=== PATIENT | female | born 1955 | race Caucasian/White ===

== ENCOUNTER 2017-10-19 21:19 | Observation (INO) | payer MEDICARE ==
[~2017-10-19] VITALS: Ht 162.6 cm; Wt 136.2 kg
[~2017-10-19 21:19] MED LIST: ACETAMINOPHEN 500 MG CPLT PO PRN; ACETAMINOPHEN/HYDROcodone 325 MG/7.5 MG TAB PO PRN; ALLO100T PO; APIX5TAB PO; CETI10 PO; DEXTROSE 50% IN WATER 50 ML VIAL(D50) IV PUSH PRN; DILT60TA33 PO; GLUCAGON 1 MG/ML VIAL OTHER PRN; INSU1.2I SQ; INSULIN DETEMIR 100 UNITS/ML VIAL SQ SCH; LISI-519 PO; METO-426 PO; MIRA25TA PO; MONT10TA2 PO; MONTELUKAST SODIUM 10 MG TAB PO SCH; MORPHINE SULFATE 4 MG/ML INJ IV PUSH PRN; NEXI20CA PO; NITROGLYCERIN 0.4 MG SL 25 TABS/BTL SL PRN; OXYC1TAB63 PO; PAXI30TA7 PO; ROPI.25 PO; SODIUM CHLORIDE 0.9% FLUSH 10 ML FLUSH IV FLUSH PRN; SPIR25TA PO; oxyCODONE/ACETAMINOPHEN 5 MG/325 MG TAB PO PRN
[2017-10-19 21:30] VITALS: BP 126/80; PULSE 102; RESP 20; TEMP 98; O2SAT 98
[2017-10-19] MEDS ORDERED: TOLTERODINE TARTRATE 2 MG CAP LA PO SCH (22:00)
[2017-10-19] MEDS: DILTIAZEM HCL 60 MG TAB PO SCH (22:24)
[2017-10-19] MEDS: APIXABAN 5 MG TABLET PO SCH (22:24)
[2017-10-19] MEDS: METOPROLOL TARTRATE 25 MG TAB PO SCH (22:24)
[2017-10-19] MEDS: INSULIN ASPART SUPPLEMENTAL SCALE SQ SCH (22:31)
[2017-10-19] MEDS: SODIUM CHLORIDE 0.9% FLUSH 10 ML FLUSH IV FLUSH SCH (22:41)
[2017-10-19 23:00] VITALS: PULSE 88
[2017-10-19 23:55] LABS: BICARBONATE 27.1 MEQ/L (21.0-32.0); CALCIUM 7.8 MG/DL (8.5-10.1)
[2017-10-19 23:58] LABS: CREATININE 0.69 MG/DL (0.50-1.00)
[2017-10-20 00:03] LABS: TROPONIN I 0.02 NG/ML (0.02-0.05)
[2017-10-20 04:00] VITALS: BP 117/71; PULSE 87; RESP 20; TEMP 96.6; O2SAT 99
[2017-10-20] MEDS: DILTIAZEM HCL 60 MG TAB PO SCH ×2 (06:13→14:58)
[2017-10-20 08:00] VITALS: BP 110/85; PULSE 90; RESP 16; TEMP 96.7; O2SAT 99
[2017-10-20] MEDS: APIXABAN 5 MG TABLET PO SCH (08:19)
[2017-10-20] MEDS: METOPROLOL TARTRATE 25 MG TAB PO SCH (08:20)
[2017-10-20] MEDS: SODIUM CHLORIDE 0.9% FLUSH 10 ML FLUSH IV FLUSH SCH (08:21)
[2017-10-20] MEDS: INSULIN ASPART SUPPLEMENTAL SCALE SQ SCH ×2 (08:21→11:55)
--- NOTE | 2017-10-20 08:48 | HHI.HP ---
[facility]Staff Admission Diagnosis Palpitations Elevated glucose Diagnoses: Chief Complaint: Palpitations Elevated glucose Travel History International Travel<30 Days: No Contact w/Intl Traveler <30 Da: No Traveled to Known Affected Are: No History of Present Illness This is a pleasant 61-year-old female patient with a known medical history of atrial fibrillation, CHF, diabetes, COPD with chronic oxygen at home who presented to the ED with complaints of palpitations and lightheadedness. Patient states that while she was having lunch yesterday she noticed that her heart started to race she became lightheaded and called EMS. She was found to be in atrial fibrillation with a heart rate in the 110's, her glucose was found to be over 500 and adequate oxygen saturation on 3 L nasal cannula. Patient denies any nausea. Does complain of vomiting 2 the last couple days. Patient denies any recent illness including fever, chills, cough, shortness of breath, abdominal pain, nausea, diarrhea, dysuria. Patient does admit to urinary frequency. Does admit to not taking her insulin for over a month now, patient states she just does not feel like it. Although she does admit to taking all of her other medications. Patient states she she is from [facility], recently moved from [place] within the last 2 months, has followed with the forestry engineer last week, denies any changes in medications. Does admit to a recent stress test and echocardiogram and cardiology workup within the year. It should be noted that patient was admitted to [facility] 2 months ago for congestive heart failure with exacerbation. Since her discharge patient states she has been doing well except noncompliance with medications. UA is positive upon presentation, likely UTI. Review of Systems Constitutional: DENIES: Fatigue, Fever, Chills Eyes: DENIES: Diplopia Respiratory: DENIES: Cough, Sputum production, Shortness of breath Cardiovascular: COMPLAINS OF: Palpitations, DENIES: Chest pain Gastrointestinal: DENIES: Abdominal pain, Black stools, Bloody stools, Constipation, Diarrhea, Nausea, Vomiting Genitourinary: COMPLAINS OF: Urinary frequency, Urinary incontinence Musculoskeletal: DENIES: Joint pain Hematologic/lymphatic: DENIES: Bruising Neurologic: DENIES: Abnormal gait Psychiatric: DENIES: Anxiety Except as stated in HPI: all other systems reviewed are Neg Past Family Social History Past Medical History Atrial fibrillation on anticoagulation CHF Diabetes COPD with oxygen Depression Chronic pain Urinary incontinence History of gout Past Surgical History Denies any previous surgery. Reported Medications Current Medications Medications (Trade) Dose Ordered Sig/Oswadlo Route Start Time Stop Time Status Last Admin (NS Flush) 2 ml UNSCH PRN IV FLUSH 10/19/17 19:30 (NS Flush) 2 ml BID IV FLUSH 10/19/17 21:00 10/20/17 08:21 (Tylenol) 500 mg Q4H PRN PO 10/19/17 19:30 (Morphine Inj) 2 mg Q4H PRN IV PUSH 10/19/17 19:30 10/20/17 04:14 (Nitrostat Sl) 0.4 mg Q5M PRN SL 10/19/17 19:30 (Aspirin) 325 mg DAILY PO 10/20/17 09:00 10/20/17 08:26 (Zyloprim) 100 mg DAILY PO 10/20/17 09:00 10/20/17 08:19 (Eliquis) 5 mg BID PO 10/19/17 21:00 10/20/17 08:19 (ZyrTEC) 10 mg DAILY PO 10/20/17 09:00 10/20/17 08:18 (Cardizem) 60 mg Q8HR PO 10/19/17 22:00 10/20/17 06:13 (Prinivil) 5 mg DAILY PO 10/20/17 09:00 10/20/17 08:19 (Lopressor) 75 mg BID PO 10/19/17 21:00 10/20/17 08:20 (Singulair) 10 mg HS PO 10/19/17 21:00 10/19/17 22:24 (Requip) 0.25 mg HS PO 10/19/17 21:00 (Aldactone) 12.5 mg DAILY PO 10/20/17 09:00 10/20/17 08:18 (Protonix) 20 mg DAILY PO 10/20/17 09:00 10/20/17 08:18 (Detrol La) 2 mg HS PO 10/19/17 22:00 10/19/17 22:29 (Paxil) 30 mg DAILY PO 10/20/17 09:00 10/20/17 08:20 (Levemir Inj) 56 units HS SQ 10/19/17 21:00 Future Hold (Percocet 5-325 Mg) 1 tab Q4H PRN PO 10/19/17 19:30 10/20/17 02:59 (D50w (Vial) Inj) 50 ml UNSCH PRN IV PUSH 10/19/17 19:30 (Glucagon Inj) 1 mg UNSCH PRN OTHER 10/19/17 19:30 (NovoLOG SUPPLEMENTAL SCALE) 1 ACHS SLIDING SCALE SQ 10/19/17 21:00 10/20/17 08:21 Allergies: Coded Allergies: cefuroxime (Verified Allergy, Severe, VOMITING AND DIARRHEA, 10/19/17) salmeterol (Verified Allergy, Severe, MAKES CHF WORSE, 10/19/17) umeclidinium (Verified Allergy, Severe, MAKES CHF WORSE, 10/19/17) vilanterol (Verified Allergy, Severe, MAKES CHF WORSE, 10/19/17) Penicillins (Verified Allergy, Unknown, CHILDHOOD, 10/19/17) Active Ordered Medications Active Reported Cardizem (Diltiazem HCl) 60 Mg Tab 60 Mg PO TID Nexium (Esomeprazole DR) 20 Mg Capdr 20 Mg PO DAILY Oxycodone-Acetaminophen 5-325 mg Tab 1 Tab PO Q6H PRN Paxil (Paroxetine HCl) 30 Mg Tab 30 Mg PO DAILY Singulair (Montelukast Sodium) 10 Mg Tab 10 Mg PO HS Cetirizine (Cetirizine HCl) 10 Mg Tab 10 Mg PO DAILY Requip (Ropinirole HCl) 0.25 Mg Tab 0.25 Mg PO HS Spironolactone 25 Mg Tab 12.5 Mg PO DAILY Lisinopril 5 Mg Tab 5 Mg PO DAILY Allopurinol 100 Mg Tab 100 Mg PO DAILY Metoprolol Tartrate 75 Mg Tab 75 Mg PO BID Myrbetriq (Mirabegron) 25 Mg Tab 25 Mg PO EVENINGS Touondina Solostar Pen Inj (Insulin Glargine) 300 Unit/Ml Pen 56 Units SQ HS Eliquis (Apixaban) 5 Mg Tab 5 Mg PO BID Family History Patient denies any significant family medical history. Social History Denies any tobacco abuse, alcohol or illicit drug use. Physical Exam Vital Signs Vital Signs Date Time Temp Pulse Resp B/P (MAP) Pulse Ox O2 Delivery O2 Flow Rate FiO2 10/20/17 08:00 96.7 90 16 110/85 (93) 99 10/20/17 04:00 96.6 87 20 117/71 (86) 99 10/19/17 23:00 88 10/19/17 21:30 98.0 102 20 126/80 (95) 98 Physical Exam GENERAL: Well-developed, well-nourished obese woman patient in NAD. On supplemental O2. SKIN: Warm and dry. No rash. HEAD: Normocephalic. Atraumatic. EYES: Pupils equal and round. No scleral icterus. No injection or drainage. ENT: No nasal bleeding or discharge. Mucous membranes pink and moist. NECK: Supple. Trachea midline. CARDIOVASCULAR: Irregularly irregular rhythm. No murmur appreciated. RESPIRATORY: No accessory muscle use. Diminished breath sounds to posterior bilateral bases. Breath sounds equal bilaterally. GASTROINTESTINAL: Abdomen soft, non-tender, nondistended. Round and obese. Normoactive bowel sounds x4. MUSCULOSKELETAL: No obvious deformities. Extremities without clubbing, cyanosis , or bilateral trace edema. NEUROLOGICAL: Awake and alert. No obvious cranial nerve deficits. Motor grossly within normal limits. 5/5 muscle strength in bilateral upper and lower extremities. Normal speech. PSYCHIATRIC: Appropriate mood and affect; insight and judgment normal. Laboratory Laboratory Tests Test 10/19/17 23:25 10/20/17 08:10 Blood Urea Nitrogen 13 Creatinine 0.69 Random Glucose 356 Calcium Level 7.8 Sodium Level 137 Potassium Level 3.6 Chloride Level 102 Carbon Dioxide Level 27.1 Anion Gap 8 Estimat Glomerular Filtration Rate 86 Total Creatine Kinase 34 Troponin I 0.02 Result Diagram: 10/19/17 0020 Septic Shock Reassessment Septic shock perfusion: reassessment completed Caprini VTE Risk Assessment Caprini VTE Risk Assessment: Mod/High Risk (score >= 2) Caprini Risk Assessment Model Point Value = 1 Point Value = 2 Point Value = 3 Point Value = 5 Age 41-60 Minor surgery BMI > 25 kg/m2 Swollen legs Varicose veins or History of unexplained or recurrent spontaneous Oral contraceptives or hormone replacement Sepsis (< 1 month) Serious lung disease, including pneumonia (< 1 month) Abnormal pulmonary function Acute myocardial infarction Congestive heart failure (< 1 month) History of inflammatory bowel disease Medical patient at bed rest Age 61-74 Arthroscopic surgery Major open surgery (> 45 min) Laparoscopic surgery (> 45 min) Malignancy Confined to bed (> 72 hours) Immobilizing plaster cast Central venous access Age >= 75 History of VTE Family history of VTE Factor V Leiden Prothrombin [id number] Lupus anticoagulant Anticardiolipin antibodies Elevated serum homocysteine Heparin-induced thrombocytopenia Other congenital or acquired thrombophilia Stroke (< 1 month) Elective arthroplasty Hip, pelvis, or leg fracture Acute spinal cord injury (< 1 month) Prophylaxis Regimen Total Risk Factor Score Risk Level Prophylaxis Regimen 0-1 Low Early ambulation 2 Moderate Order ONE of the following: *Sequential Compression Device (SCD) *Heparin 5000 units SQ BID 3-4 Higher Order ONE of the following medications: *Heparin 5000 units SQ TID *Enoxaparin/Lovenox 40 mg SQ daily (WT < 150 kg, CrCl > 30 mL/min) *Enoxaparin/Lovenox 30 mg SQ daily (WT < 150 kg, CrCl > 10-29 mL/min) *Enoxaparin/Lovenox 30 mg SQ BID (WT < 150 kg, CrCl > 30 mL/min) AND/OR *Sequential Compression Device (SCD) 5 or more Highest Order ONE of the following medications: *Heparin 5000 units SQ TID (Preferred with Epidurals) *Enoxaparin/Lovenox 40 mg SQ daily (WT < 150 kg, CrCl > 30 mL/min) *Enoxaparin/Lovenox 30 mg SQ daily (WT < 150 kg, CrCl > 10-29 mL/min) *Enoxaparin/Lovenox 30 mg SQ BID (WT < 150 kg, CrCl > 30 mL/min) AND *Sequential Compression Device (SCD) Assessment and Plan Problem List: (1) UTI (urinary tract infection) ICD Code: N39.0 - Urinary tract infection, site not specified Plan: Patient presented with urinary frequency. UA abnormal showing presence of white blood cells and bacteria. Culture pending. Was given 1 dose of Macrobid in ED. Continue. (2) Atrial fibrillation with RVR ICD Code: I48.91 - Unspecified atrial fibrillation Plan: EKG reviewed showing A. fib RVR with heart rate 115. Cardiac telemetry continued, heart rate now more controlled. Continue home medications including Lopressor and Cardizem. Continue home Eliquis. We will continue to monitor. (3) Type 2 diabetes mellitus ICD Code: E11.9 - Type 2 diabetes mellitus without complications Plan: Random glucose over 500. Patient placed on Accu-Chek before meals at bedtime, sliding scale, cover as needed. Patient does admit to noncompliance with her insulin at home. Will restart and monitor blood sugar trends. PCP to follow. Encourage compliance with medications. Patient BS improved. Will DC on same dose of insulin at home. Follow PCP outpatient. (4) Hypertension ICD Code: I10 - Essential (primary) hypertension Plan: Blood pressure trends controlled. Continue home lisinopril. Monitor trending. (5) COPD (chronic obstructive pulmonary disease) ICD Code: J44.9 - Chronic obstructive pulmonary disease, unspecified Plan: Not in exacerbation. Patient is on 3 L nasal cannula, this is patient's baseline at home. Will restart home Singulair. Supportive care. Oxygen saturations above 92%. (6) CHF (congestive heart failure) ICD Code: I50.9 - Heart failure, unspecified Plan: Mild exacerbation. BNP 500. Will restart spironolactone. Given 1 dose of Lasix and potassium supplementation. Continue to monitor intake and output. Patient diuresing well. CXR reviewed and negative for any acute disease. Patient assessed later after diuretic and diuresing well. Will DC home. All symptoms improved. Christina Del Toro October 20, 2017 08:48
[2017-10-20 08:56] LABS: TROPONIN I LESS THAN 0.02 NG/ML (0.02-0.05)
[2017-10-20] MEDS ORDERED: ASPIRIN 325 MG TAB PO SCH (09:00)
[2017-10-20] MEDS ORDERED: LISINOPRIL 5 MG TAB PO SCH (09:00)
[2017-10-20] MEDS ORDERED: PANTOPRAZOLE SOD 20 MG DELAYED RELEASE TAB PO SCH (09:00)
[2017-10-20] MEDS ORDERED: PARoxetine HCL 20 MG TAB PO SCH (09:00)
[2017-10-20] MEDS ORDERED: ALLOPURINOL 100 MG TAB PO SCH (09:00)
[2017-10-20] MEDS ORDERED: SPIRONOLACTONE 25 MG TAB PO SCH (09:00)
[2017-10-20] MEDS ORDERED: CETIRIZINE HCL 10 MG TAB PO SCH (09:00)
[2017-10-20] MEDS ORDERED: POTASSIUM CHLORIDE 20 MEQ CONTROLLED RELEASE TAB PO ONE (10:00)
[2017-10-20] MEDS ORDERED: FUROSEMIDE 20 MG TAB PO ONE (10:00)
[2017-10-20] MEDS ORDERED: NITROFURANTOIN MONOHYD MACROCR 100 MG CAP PO SCH (10:45)
[2017-10-20 11:12] LABS: AUTOMATED NEUTROPHIL # 4.8 TH/MM3 (1.8-7.7); BASOPHIL % 0.5 % (0.0-2.0); EOSINOPHIL # 0.3 TH/MM3 (0-0.4); EOSINOPHIL % 3.5 % (0.0-4.0); HEMATOCRIT 40.6 % (35.0-46.0); HEMOGLOBIN 13.3 GM/DL (11.6-15.3); LYMPH % 27.7 % (9.0-44.0); LYMPHOCYTE # 2.1 TH/MM3 (1.0-4.8); MEAN CELL VOLUME 85.4 FL (80.0-100.0); MEAN CORPUSCULAR HEMOGLOBIN 27.9 PG (27.0-34.0); MEAN CORPUSCULAR HGB CONC 32.6 % (32.0-36.0); MEAN PLATELET VOLUME 10.1 FL (7.0-11.0); MONO % 4.3 % (0.0-8.0); MONOCYTE # 0.3 TH/MM3 (0-0.9); PLATELET COUNT 188 TH/MM3 (150-450); RED BLOOD COUNT 4.76 MIL/MM3 (4.00-5.30); WHITE BLOOD COUNT 7.5 TH/MM3 (4.0-11.0)
[2017-10-20 12:00] VITALS: BP 102/75; PULSE 89; RESP 18; TEMP 97; O2SAT 98
[2017-10-20] MEDS ORDERED: NITR100C4 PO (13:37)
--- NOTE | 2017-10-20 13:37 | HHI.DCPOC ---
Discharge Care Plan Diagnosis: (1) UTI (urinary tract infection) (2) Type 2 diabetes mellitus (3) Atrial fibrillation with RVR (4) Hypertension (5) CHF (congestive heart failure) (6) COPD (chronic obstructive pulmonary disease) Goals to Promote Your Health * To prevent worsening of your condition and complications * To maintain your health at the optimal level Directions to Meet Your Goals Take your medications as prescribed Follow your dietary instruction Follow activity as directed Keep your appointments as scheduled Take your immunizations and boosters as scheduled If your symptoms worsen call your PCP, if no PCP go to Urgent Care Center or Emergency Room Smoking is Dangerous to Your Health. Avoid second hand smoke Call the 24-hour hour crisis hotline for domestic abuse at Christina Del Toro October 20, 2017 13:37
--- NOTE | 2017-10-20 22:14 | EKG ---
Date Performed: 10/20/2017 Time Performed: 07:59:29 PTAGE: 61 years EKG: ATRIAL FIBRILLATION MARKED LEFT AXIS DEVIATION POSSIBLE ANTERIOR MYOCARDIAL INFARCTION ABNO RMAL ECG PREVIOUS TRACING : 10/19/2017 23.01 Since the previous tracing, no significant change noted DOCTOR: Sunil Das Interpretating Date/Time 10/20/2017 22:13:52
--- NOTE | 2017-10-20 22:24 | EKG ---
Date Performed: 10/19/2017 Time Performed: 23:01:16 PTAGE: 61 years EKG: ATRIAL FIBRILLATION WITH ABERRANT CONDUCTION OR VENTRICULAR PREMATURE COMPLEXES PATTERN CON SISTENT WITH PULMONARY DISEASE LEFT ANTERIOR FASCICULAR BLOCK NONSPECIFIC T-WAVE ABNORMALITY ABNORMAL ECG NO PREVIOUS TRACING DOCTOR: Sunil Das Interpretating Date/Time 10/20/2017 22:22:01
== END 2017-10-20 15:31 | disposition home or self-care (01) ==
LOC: PHEDDLT 21:19 → UNDOADMOB 21:20 → PH3A 21:20 → PHEDA 21:20
PROVIDERS: ADMIT Hospitalist; ATTEND Hospitalist
DX: N39.0 Urinary tract infection, site not specified (principal); B95.2 Enterococcus as the cause of diseases classified elsewhere; R00.2 Palpitations; R42 Dizziness and giddiness; E11.65 Type 2 diabetes mellitus with hyperglycemia; I48.91 Unspecified atrial fibrillation; I11.0 Hypertensive heart disease with heart failure; I50.9 Heart failure, unspecified; J44.9 Chronic obstructive pulmonary disease, unspecified; Z79.01 Long term (current) use of anticoagulants; Z99.81 Dependence on supplemental oxygen
CPT/HCPCS: 71045; 80053; 81001; 82550; 82948; 83880; 84484; 85025; 85610; 85730; 87077; 87086; 87186; 93005; 96372; 96374; 96375; 96376; 99285; G0378; J1815; J2270; 80048

== ENCOUNTER 2018-04-13 14:29 | Inpatient (IN) ==
--- NOTE | 2018-04-13 15:46 | ED ---
HPI General Chief Complaint: Psychiatric Symptoms Stated Complaint: psych eval/VCSO Time Seen by Provider: 04/13/18 15:27 Source: patient Mode of arrival: ambulatory Limitations: no limitations History of Present Illness HPI Narrative: 62-year-old chronically ill, wheelchair bound, oxygen dependent female presents to the emergency under an ex-parte initiated by her daughter for evaluation of psychotic behavior. Daughter states patient has been actively hallucinating and completely psychotic stating that she thinks the shelter staff and please officers are trying to kill her. She is refusing to take her medication and unable to take care of herself because of her morbid obesity and multiple medical problems. Patient adamantly denies suicidal ideation at this time. States she has 2 dogs, , and grandchildren that she would like to have Wing[place] with. States she was in her usual state of health when the police officers apprehended her today. She states at her previous shelter, the staff used the patient's for experimentation with medications. She states they bugged her phone and made it speak to her. Patient states last night she saw snakes crawling on her neck and on the ceiling. She denies any active hallucinations at this time. She is on multiple medications for multiple medical conditions but she does not remember them. She does have A. fib but she goes in and out of and is on Eliquis. complaint: Reports feels depressed Onset (ago): day(s) Duration: constant History of same: Yes Relieving factors: medication Exacerbating factors: none Context: Reports not taking psychiatric medications Associated psychiatric symptoms: Reports depression, auditory hallucinations, visual hallucinations and delusions Associated symptoms: Reports denies other symptoms Treatments prior to arrival: Reports placed on mental health hold Related Data Home Medications Medication Instructions Recorded Confirmed Eliquis 5 mg PO DAILY 04/13/18 04/13/18 Paxil 04/13/18 allopurinol 300 mg PO DAILY 04/13/18 04/13/18 aspirin 81 mg PO DAILY 04/13/18 04/13/18 cholecalciferol (vitamin D3) 10,000 unit PO DAILY 04/13/18 04/13/18 [Vitamin D3] diltiazem HCl 60 mg PO TID 04/13/18 04/13/18 esomeprazole magnesium 20 mg PO DAILY 04/13/18 04/13/18 furosemide 40 mg PO DAILY 04/13/18 04/13/18 insulin glargine U-300 conc 60 unit SUBCUT HS 04/13/18 04/13/18 [Nestor Jorgensen U-300 Insulin] magnesium 250 mg PO DAILY 04/13/18 04/13/18 metoprolol tartrate 100 mg PO BID 04/13/18 04/13/18 montelukast 10 mg PO QPM 04/13/18 04/13/18 oxybutynin chloride 5 mg PO DAILY 04/13/18 04/13/18 oxycodone-acetaminophen 1 tab PO Q2H PRN 04/13/18 04/13/18 quetiapine [Seroquel] 50 mg PO DAILY 04/13/18 04/13/18 quetiapine [Seroquel] 100 mg PO HS 04/13/18 04/13/18 ropinirole 1 mg PO HS 04/13/18 04/13/18 simvastatin 40 mg PO QPM 04/13/18 04/13/18 Allergies Allergy/AdvReac Type Severity Reaction Status Date / Time cefuroxime Allergy Severe VOMITING Verified 04/13/18 14:50 AND DIARRHEA salmeterol Allergy Severe MAKES CHF Verified 04/13/18 14:50 WORSE umeclidinium Allergy Severe MAKES CHF Verified 04/13/18 14:50 WORSE vilanterol Allergy Severe MAKES CHF Verified 04/13/18 14:50 WORSE Penicillins Allergy Unknown CHILDHOOD Verified 04/13/18 14:50 albuterol Allergy Arrhythmias Verified 04/13/18 14:50 metformin Allergy Confusion Verified 04/13/18 14:50 Review of Systems ROS: all other systems reviewed are negative [facility] Medical History Medical History Arthritis (Acute) Atrial fibrillation (Acute) CHF (congestive heart failure) (Acute) Degenerative disc disease (Acute) Diabetes (Acute) Emphysema/COPD (Acute) Gout (Acute) Lupus (Acute) Surgical History Surgical History History of cholecystectomy (Acute) Social History Social History Substance History: No History of Abuse Second Hand Smoke Exposure: Yes Smoking Status: Never smoker Tobacco Type: Cigarettes How Often Do You Have a Drink Containing Alcohol: Never Recent Travel in [facility] within the Last 8 Weeks: No Recent Out of Country Travel within the Last 8 Weeks: No Immunization History Tetanus Immunization: Unsure Exam Narrative Exam Narrative: GENERAL: Well-nourished, morbidly obese female no acute distress. Afebrile. Wheelchair-bound. SKIN: Focused skin assessment warm/dry. HEAD: Normocephalic. EYES: No scleral icterus. No injection or drainage. NECK: Supple, trachea midline. No JVD or lymphadenopathy. CARDIOVASCULAR: Regular rate. Irregular rhythm without murmurs, gallops, or rubs. RESPIRATORY: Breath sounds equal bilaterally. No accessory muscle use. MUSCULOSKELETAL: No cyanosis. BACK: Nontender without obvious deformity. No CVA tenderness. Course Initial Documented Vital Signs Temperature 96.8 F L 04/13/18 15:34 Pulse Rate 87 04/13/18 15:34 Respiratory Rate 20 04/13/18 15:34 Blood Pressure 111/66 04/13/18 15:34 Pulse Oximetry 93 L 04/13/18 15:34 Last Documented Vital Signs Temperature 98.4 F 04/14/18 07:30 Pulse Rate 94 H 04/14/18 07:30 Respiratory Rate 16 04/14/18 07:30 Blood Pressure 116/76 04/14/18 07:30 Pulse Oximetry 94 L 04/14/18 07:30 Medical Decision Making MDM Narrative Medical decision making narrative: 62-year-old chronically ill female presents the emergency room under an ex partake initiated by her daughter. According to paperwork, patient is unable to care for self because of multiple medical and psychiatric diseases. She is noncompliant with medication. Patient does report hallucinations and delusions during conversation. She is labile. Physical exam is reassuring. Patient is resting comfortably in her wheelchair. She is in A. fib. IV access established and basic labs obtained. CBC is unremarkable. CMP only shows mildly elevated creatinine. TSH is slightly elevated. UA shows significant evidence for infection. Patient was given 1 g of ceftriaxone. Drug screen is negative. Alcohol is negative. Patient was given her morning meds. Patient is medically cleared for psychiatric evaluation. Medical Screen Exam Complete: Yes Emergency Medical Condition: Yes Differential Diagnosis Differential Diagnosis: Schizophrenia, drug-induced mood disorder, mood disorder , depression, anxiety Lab Data Result diagrams: 04/13/18 16:25 04/13/18 16:25 Lab Results 04/13/18 04/13/18 04/13/18 Range/Units 16:25 16:25 16:25 WBC 6.1 (4.0-11.0) th/mm3 RBC 4.22 (4.00-5.30) mil/mm3 Hgb 11.0 L (11.6-15.3) gm/dL Hct 34.7 L (35.0-46.0) % MCV 82.2 (80.0-100.0) fL MCH 26.1 L (27.0-34.0) pg MCHC 31.7 L (32.0-36.0) % RDW 20.2 H (11.6-17.2) % Plt Count 119 L (150-450) th/mm3 MPV 9.0 (7.0-11.0) fL Neut % (Auto) 72.3 H (16.0-70.0) % Lymph % (Auto) 18.6 (9.0-44.0) % [place] % (Auto) 5.0 (0.0-8.0) % Eos % (Auto) 3.7 (0.0-4.0) % Baso % (Auto) 0.4 (0.0-2.0) % Neut # (Auto) 4.4 (1.8-7.7) th/mm3 Lymph # (Auto) 1.1 (1.0-4.8) th/mm3 [place] # (Auto) 0.3 (0.0-0.9) th/mm3 Eos # (Auto) 0.2 (0.0-0.4) th/mm3 Baso # (Auto) 0.0 (0.0-0.2) th/mm3 WBC Differential . Differential Comment Auto diff final Sodium 138 (136-145) meq/L Potassium 4.3 (3.5-5.1) meq/L Chloride 99 (98-107) meq/L Carbon Dioxide 32.7 H (21.0-32.0) meq/L Anion Gap 6 (5-15) meq/L BUN 22 H (7-18) mg/dL Creatinine 1.18 H (0.50-1.00) mg/dL Estimated GFR 46 L (>89) mL/min Random Glucose 162 H (74-106) mg/dL Calcium 7.8 L (8.5-10.1) mg/dL Total Bilirubin 1.0 (0.2-1.0) mg/dL AST 19 (15-37) U/L ALT 13 (10-53) U/L Alkaline Phosphatase 118 H (45-117) U/L Total Protein 6.5 (6.4-8.2) g/dL Albumin 3.2 L (3.4-5.0) g/dL TSH 4.300 H (0.358-3.740) uIU/mL Urine Color (Yellw/Straw) Urine Clarity (Clear) Urine pH (5.0-8.5) Ur Specific [place] (1.002-1.035) Urine Protein (Neg-Trace) mg/dL Urine Glucose (UA) (Negative) mg/dL Urine Ketones (Negative) mg/dL Urine Occult Blood (Negative) Urine Nitrate (Negative) Urine Bilirubin (Negative) Urine Urobilinogen (Less than 2) mg/dL Ur Leukocyte Esterase (Negative) Urine RBC (0-3) /hpf Urine WBC (0-5) /hpf Urine WBC Clumps (None) Ur Squamous Epith Cells (0-5) /hpf Urine Bacteria (None) /hpf Hyaline Casts (0-3) /lpf Urine Mucus (Occasional) /lpf Micro UA Comment Ur Microscopic Review Urine Culture Comments Salicylates Less than 1.7 L (2.8-20.0) mg/dL Urine Opiates Screen (Neg) Acetaminophen Less than 2.0 L (10.0-30.0) mcg/mL Ur Barbiturates Screen (Neg) Ur Amphetamines Screen (Neg) U Benzodiazepines Scrn (Neg) Urine Cocaine Screen (Neg) U Cannabinoids Screen (Neg) Serum Alcohol Less than 3 (0-5) mg/dL 04/13/18 04/13/18 Range/Units 17:50 17:50 WBC (4.0-11.0) th/mm3 RBC (4.00-5.30) mil/mm3 Hgb (11.6-15.3) gm/dL Hct (35.0-46.0) % MCV (80.0-100.0) fL MCH (27.0-34.0) pg MCHC (32.0-36.0) % RDW (11.6-17.2) % Plt Count (150-450) th/mm3 MPV (7.0-11.0) fL Neut % (Auto) (16.0-70.0) % Lymph % (Auto) (9.0-44.0) % [place] % (Auto) (0.0-8.0) % Eos % (Auto) (0.0-4.0) % Baso % (Auto) (0.0-2.0) % Neut # (Auto) (1.8-7.7) th/mm3 Lymph # (Auto) (1.0-4.8) th/mm3 [place] # (Auto) (0.0-0.9) th/mm3 Eos # (Auto) (0.0-0.4) th/mm3 Baso # (Auto) (0.0-0.2) th/mm3 WBC Differential Differential Comment Sodium (136-145) meq/L Potassium (3.5-5.1) meq/L Chloride (98-107) meq/L Carbon Dioxide (21.0-32.0) meq/L Anion Gap (5-15) meq/L BUN (7-18) mg/dL Creatinine (0.50-1.00) mg/dL Estimated GFR (>89) mL/min Random Glucose (74-106) mg/dL Calcium (8.5-10.1) mg/dL Total Bilirubin (0.2-1.0) mg/dL AST (15-37) U/L ALT (10-53) U/L Alkaline Phosphatase (45-117) U/L Total Protein (6.4-8.2) g/dL Albumin (3.4-5.0) g/dL TSH (0.358-3.740) uIU/mL Urine Color [place] (Yellw/Straw) Urine Clarity Turbid H (Clear) Urine pH 5.0 (5.0-8.5) Ur Specific [place] 1.020 (1.002-1.035) Urine Protein 100 H (Neg-Trace) mg/dL Urine Glucose (UA) Negative (Negative) mg/dL Urine Ketones Negative (Negative) mg/dL Urine Occult Blood Moderate H (Negative) Urine Nitrate Negative (Negative) Urine Bilirubin Negative (Negative) Urine Urobilinogen 2.0 H (Less than 2) mg/dL Ur Leukocyte Esterase Moderate H (Negative) Urine RBC 11 H (0-3) /hpf Urine WBC (0-5) /hpf Urine WBC Clumps Many H (None) Ur Squamous Epith Cells 1 (0-5) /hpf Urine Bacteria Few H (None) /hpf Hyaline Casts 169 (0-3) /lpf Urine Mucus Many H (Occasional) /lpf Micro UA Comment Culture indicated Ur Microscopic Review Not Reportable Urine Culture Comments Culture indicated Salicylates (2.8-20.0) mg/dL Urine Opiates Screen Neg (Neg) Acetaminophen (10.0-30.0) mcg/mL Ur Barbiturates Screen Neg (Neg) Ur Amphetamines Screen Neg (Neg) U Benzodiazepines Scrn Neg (Neg) Urine Cocaine Screen Neg (Neg) U Cannabinoids Screen Neg (Neg) Serum Alcohol (0-5) mg/dL Discharge Plan Discharge Disposition Patient Disposition: 30 Still Patient Physicians Team ED Provider: Christina Rouse ED Midlevel Provider: Ivet Jennings Primary Care Provider: UNKNOWN, Rxs /Orders / Referrals /Forms Prescriptions: No Action quetiapine [Seroquel] 100 mg Tablet 100 mg PO HS RF: 0 quetiapine [Seroquel] 50 mg Tablet 50 mg PO DAILY RF: 0 Eliquis 5 mg PO DAILY RF: 0 Paxil RF: 0 insulin glargine U-300 conc [Toujeo SoloStar U-300 Insulin] 300 unit/mL (1.5 mL) Insulin Pen 60 unit SUBCUT HS RF: 0 simvastatin 40 mg Tablet 40 mg PO QPM RF: 0 oxycodone-acetaminophen 10-325 mg Tablet 1 tab PO Q2H PRN (Reason: Pain) RF: 0 montelukast 10 mg Tablet 10 mg PO QPM RF: 0 allopurinol 300 mg Tablet 300 mg PO DAILY RF: 0 magnesium 250 mg Tablet 250 mg PO DAILY RF: 0 diltiazem HCl 60 mg Tablet 60 mg PO TID RF: 0 cholecalciferol (vitamin D3) [Vitamin D3] 5,000 unit Tablet 10,000 unit PO DAILY RF: 0 furosemide 40 mg Tablet 40 mg PO DAILY RF: 0 ropinirole 1 mg Tablet 1 mg PO HS RF: 0 metoprolol tartrate 100 mg Tablet 100 mg PO BID RF: 0 aspirin 81 mg Tablet,Chewable 81 mg PO DAILY RF: 0 oxybutynin chloride 5 mg Tablet 5 mg PO DAILY RF: 0 esomeprazole magnesium 20 mg Capsule,Delayed Release(Dr/Ec) 20 mg PO DAILY RF: 0 Status ED Status: Medically Cleared
[2018-04-13 16:43] LABS: Baso % (Auto) 0.4 % (0.0-2.0); Eos # (Auto) 0.2 th/mm3 (0.0-0.4); Eos % (Auto) 3.7 % (0.0-4.0); Hematocrit 34.7 % (35.0-46.0); Lymph # (Auto) 1.1 th/mm3 (1.0-4.8); Lymph % (Auto) 18.6 % (9.0-44.0); Mean Corpuscular HGB Conc 31.7 % (32.0-36.0); Mean Corpuscular Hemoglobin 26.1 pg (27.0-34.0); Mean Corpuscular Volume 82.2 fL (80.0-100.0); Mono # (Auto) 0.3 th/mm3 (0.0-0.9); Neut # (Auto) 4.4 th/mm3 (1.8-7.7); Neut % (Auto) 72.3 % (16.0-70.0); Platelet Count 119 th/mm3 (150-450); Red Blood Count 4.22 mil/mm3 (4.00-5.30); Red Cell Distribution Width 20.2 % (11.6-17.2); White Blood Count 6.1 th/mm3 (4.0-11.0)
[2018-04-13 17:08] LABS: Alanine Aminotransferase 13 U/L (10-53); Albumin 3.2 g/dL (3.4-5.0); Anion Gap 6 meq/L (5-15); Aspartate Aminotransferase 19 U/L (15-37); Blood Urea Nitrogen 22 mg/dL (7-18); Calcium 7.8 mg/dL (8.5-10.1); Carbon Dioxide 32.7 meq/L (21.0-32.0); Chloride 99 meq/L (98-107); Glomerular Filtration Rate 46 mL/min (>89); Glucose,Random 162 mg/dL (74-106); Potassium 4.3 meq/L (3.5-5.1); Sodium 138 meq/L (136-145)
[2018-04-13 17:18] LABS: Alkaline Phosphatase 118 U/L (45-117); Total Protein 6.5 g/dL (6.4-8.2)
[2018-04-13] MEDS ORDERED: Sodium Chlor 0.9% Inj 500 ML IV.SIG STA (18:18)
[2018-04-13 19:05] LABS: Bacteria,Urine Few /hpf; Bilirubin,Urine Negative (Negative); Clarity,Urine Turbid (Clear); Color,Urine Amber (Yellw/Straw); Glucose,Urine (UA) Negative (Negative); Hyaline Casts,Urine 169 /lpf (0-3); Leukocyte Esterase,Urine Moderate (Negative); Mucus,Urine Many /lpf (Occasional); Nitrite,Urine Negative (Negative); Squamous Epithelial Cell,Urine 1 /hpf (0-5)
[2018-04-13 19:09] LABS: Amphetamine Screen,Urine Neg (Neg); Barbiturate Screen,Urine Neg (Neg); Cannabinoid Screen,Urine Neg (Neg); Cocaine Screen,Urine Neg (Neg)
[2018-04-13 19:10] LABS: Opiate Screen,Urine Neg (Neg)
[2018-04-14] MEDS ORDERED: Metoprolol Tartrate 100 MG Tablet PO ONE (09:49)
[2018-04-14] MEDS ORDERED: dilTIAZem 60 MG Tablet PO ONE (09:49)
[2018-04-14] MEDS ORDERED: Furosemide 40 MG Tablet PO ONE (09:49)
--- NOTE | 2018-04-14 14:12 | P.CONPSY ---
Provisional Diagnosis Admission Date: April 13, 2018 14:29 Dup[place]er I.: Psychosis not otherwise specified History of Present Illness Primary Care Provider: UNKNOWN History of Present Illness: This is a 62-year-old, morbidly obese, disabled, , female who presents to this facility under an ex parte that was initiated by the patient's daughter. She is not previously known to the psychiatric department this facility. Reviewed electronic medical records, labs, discussed case with staff. Patient was assessed in B23. She was found in a hospital bed, closed in a hospital gown , awake, alert and oriented x4. Her speech is clear, logical, organized, of normal charity and volume. She is denying suicidal or homicidal ideation. She reports intermittent auditory and visual hallucinations. Her mood is labile and she becomes tearful multiple times throughout the discussion. She reports that the hallucinations began approximately 4 months ago and states that after that she "lost my ability to walk". She states that she had one previous suicide attempt at 8 years of age however, her daughter reports in the ex partake that the first time she attempted suicide was when the daughter was 6 years old. The patient speech is a bit tangential she jumps from discussing her hallucinations to talking about the external stress she is under the thought of moving. She claims that she is currently taking Seroquel, lorazepam , and Paxil however, here again the ex parte day reports she has not been compliant with her medications. According to the ex parte, over the last several months patient has become paranoid as indicated by multiple phone calls to the police while she was at a rehab. She reported to the police that she thought staff were killing residents. However, when the police showed up on the scene she did not believe they were in fact officers. She has had some aggressive behavior towards family and staff and the daughter states that she is not compliant with her medications. The patient is positive for urinary tract infection which could be contributing to her current mental status. There also could be some machinations on the part of the family to get her placed in a SNF as the daughter mentions multiple times, in the ex parte that they are unable to provide adequate physical care for the patient.. Review of Systems All other systems reviewed negative except as stated in HPI PMFSH - History History Provided By: Patient - Medical History Medical History: Medical History (Last Reviewed 04/14/18 @ 14:07 by RITA Santoro) Arthritis Atrial fibrillation CHF (congestive heart failure) Degenerative disc disease Diabetes Emphysema/COPD Gout Lupus - Surgical History Surgical History: Surgical History (Last Reviewed 04/14/18 @ 14:07 by RITA Santoro) History of cholecystectomy - Tobacco History Second Hand Smoke Exposure: Yes Tobacco Use In Past 30 Days: No Smoking Status: Never smoker Tobacco Type: Cigarettes - Alcohol History How Often Do You Have a Drink Containing Alcohol: Never - Substance Use History Substance History: No History of Abuse - Travel History Recent Travel in the [place] Within the Last 8 Weeks: No Recent Travel Out of the Country Within the Last 8 Weeks: No - Immunization History Tetanus Immunization: Unsure Medications and Allergies Allergies Allergy/AdvReac Type Severity Reaction Status Date / Time cefuroxime Allergy Severe VOMITING Verified 04/13/18 14:50 AND DIARRHEA salmeterol Allergy Severe MAKES CHF Verified 04/13/18 14:50 WORSE umeclidinium Allergy Severe MAKES CHF Verified 04/13/18 14:50 WORSE vilanterol Allergy Severe MAKES CHF Verified 04/13/18 14:50 WORSE Penicillins Allergy Unknown CHILDHOOD Verified 04/13/18 14:50 albuterol Allergy Arrhythmias Verified 04/13/18 14:50 metformin Allergy Confusion Verified 04/13/18 14:50 Home Medications Medication Instructions Recorded Confirmed Type Eliquis 5 mg PO DAILY 04/13/18 04/13/18 History Paxil 04/13/18 History allopurinol 300 mg PO DAILY 04/13/18 04/13/18 History aspirin 81 mg PO DAILY 04/13/18 04/13/18 History cholecalciferol (vitamin D3) 10,000 unit PO DAILY 04/13/18 04/13/18 History [Vitamin D3] diltiazem HCl 60 mg PO TID 04/13/18 04/13/18 History esomeprazole magnesium 20 mg PO DAILY 04/13/18 04/13/18 History furosemide 40 mg PO DAILY 04/13/18 04/13/18 History insulin glargine U-300 conc 60 unit SUBCUT HS 04/13/18 04/13/18 History [Toujeo SoloStar U-300 Insulin] magnesium 250 mg PO DAILY 04/13/18 04/13/18 History metoprolol tartrate 100 mg PO BID 04/13/18 04/13/18 History montelukast 10 mg PO QPM 04/13/18 04/13/18 History oxybutynin chloride 5 mg PO DAILY 04/13/18 04/13/18 History oxycodone-acetaminophen 1 tab PO Q2H PRN 04/13/18 04/13/18 History quetiapine [Seroquel] 50 mg PO DAILY 04/13/18 04/13/18 History quetiapine [Seroquel] 100 mg PO HS 04/13/18 04/13/18 History ropinirole 1 mg PO HS 04/13/18 04/13/18 History simvastatin 40 mg PO QPM 04/13/18 04/13/18 History Exam Vital signs: Vital Signs 04/13/18 15:34 04/13/18 21:40 04/14/18 01:41 Temperature 96.8 F L Pulse Rate 87 Respiratory Rate 20 20 Blood Pressure 111/66 118/64 122/70 Pulse Oximetry 93 L 04/14/18 05:10 04/14/18 07:30 04/14/18 11:00 Temperature 98.4 F Pulse Rate 94 H 80 Respiratory Rate 16 18 Blood Pressure 124/68 116/76 127/71 Pulse Oximetry 94 L 99 Intake & Output 04/13/18 04/14/18 04/14/18 18:59 06:59 18:59 Intake Total 600 / 600 Balance 600 / 600 Weight 400 lb Intake: IV 600 / 600 NS Inj 500 ML @ 500 mls/hr IV. 500 / 500 SIG BOLUS STA Rx#:[id number] Rocephin Inj 1,000 MG In NS Inj 100 / 100 100 ML @ 200 mls/hr IV.SIG ONCE ONE Rx#:[id number] - Constitutional mild distress, morbidly obese, cooperative - Routine HEENT Exam Head: Present: normocephalic - Routine Neurological Exam Present: alert, oriented X3 - Routine Psychiatric Exam Present: auditory hallucinations, visual hallucinations, anxious Mental Status Examination Appearance: Disheveled Consciousness: Alert Orientation: x4 Motor Activity: Other (Lying on the bed) Speech: Unremarkable Language: Adequate Fund of Knowledge: Adequate Attention and Concentration: Adequate Memory: Unremarkable Mood: Anxious Affect: Anxious Thought Process & Associations: Tangential Thought Content: Hallucinations Hallucination Type: Auditory, Visual Delusion Type: Paranoid (Reported) Suicidal Ideation: No Suicidal Plan: No Suicidal Intention: No Homicidal Ideation: No Homicidal Plan: No Homicidal Intention: No Insight: Fair Judgment: Impulsive Assessment and Plan - Plan Plan: Estimated LOS: [] days Justification for Continued Inpatient Stay: Moving this patient to a less restrictive environment would likely result in decompensation.
[2018-04-14] MEDS ORDERED: Dextrose 50% in Water 50 ML Vial IV.PUSH PRN (14:32)
[2018-04-14] MEDS: Insulin NovoLOG Aspart Correctional Sugar Inj SQ SCH ×2 (18:01→20:41)
[2018-04-14] MEDS ORDERED: Influenza (Quadrivalent) Vaccine 0.5 ML Syringe IM ONE (20:00)
[2018-04-14] MEDS: QUEtiapine 100 MG Tablet PO SCH (20:31)
[2018-04-14] MEDS: Senna/Docusate Sodium 8.6/50 MG Tablet PO SCH (20:46)
[2018-04-14] MEDS: Metoprolol Tartrate 100 MG Tablet PO SCH (20:46)
[2018-04-14] MEDS ORDERED: INSULIN GLARGINE SQ SCH (21:00)
[2018-04-15] MEDS: Insulin NovoLOG Aspart Correctional Sugar Inj SQ SCH ×5 (04:29→20:45)
[2018-04-15 08:06] LABS: Calcium 7.8 mg/dL (8.5-10.1); Carbon Dioxide 29.9 meq/L (21.0-32.0); Potassium 3.8 meq/L (3.5-5.1)
[2018-04-15 08:11] LABS: Chol/HDL Ratio 3.71 Ratio; HDL Cholesterol 29.1 mg/dL (40.0-60.0)
[2018-04-15] MEDS: Pantoprazole Sodium 20 MG DR Tablet PO SCH (09:47)
[2018-04-15] MEDS: Magnesium Oxide 400 MG Tablet PO SCH (09:48)
[2018-04-15] MEDS: Senna/Docusate Sodium 8.6/50 MG Tablet PO SCH ×2 (09:49→20:35)
[2018-04-15] MEDS: QUEtiapine 25 MG Tablet PO SCH (09:49)
[2018-04-15] MEDS: Allopurinol 300 MG Tablet PO SCH (09:59)
[2018-04-15] MEDS: Furosemide 40 MG Tablet PO SCH (10:00)
[2018-04-15] MEDS: Metoprolol Tartrate 100 MG Tablet PO SCH ×2 (10:01→20:34)
[2018-04-15] MEDS: dilTIAZem 60 MG Tablet PO SCH ×3 (10:05→17:23)
[2018-04-15 16:02] LABS: Hemoglobin A1c 7.9 % (4.3-6.0)
--- NOTE | 2018-04-15 16:11 | ECG ---
Date Performed: 04/15/2018 Time Performed: 10:38:19 PTAGE: 62 years EKG: ATRIAL FIBRILLATION WITH RAPID VENTRICULAR RESPONSE MARKED LEFT AXIS DEVIATION LOW QRS VOLT AGE POSSIBLE ANTERIOR MYOCARDIAL INFARCTION , PROBABLY OL Since previous tracing, no significant womack ge noted ABNORMAL ECG PREVIOUS TRACING : 10/20/2017 07.59 DOCTOR: Phylicia Hernandez Interpretating Date/Time 04/15/2018 16:09:12
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
[2018-04-15] MEDS: Montelukast 10 MG Tablet PO SCH (17:23)
[2018-04-15] MEDS: QUEtiapine 100 MG Tablet PO SCH (20:35)
[2018-04-15] MEDS ORDERED: INSULIN GLARGINE SQ SCH (21:00)
[2018-04-16] MEDS: Insulin NovoLOG Aspart Correctional Sugar Inj SQ SCH ×5 (04:15→21:26)
--- NOTE | 2018-04-16 09:23 | P.CONPSY ---
Provisional Diagnosis Admission Date: April 14, 2018 14:48 [place] I.: Psychosis not otherwise specified History of Present Illness Service: Psychiatry Consult date: 04/16/18 Requesting Physician: Prabhakar Almendarez Reason for Consult: Second opinion petition supporting Sanchez act Primary Care Provider: UNKNOWN History of Present Illness: Patient is 62-year-old white female admitted to Dr. Almendarez service under the Sanchez act Dr. Almendarez H&P reviewed and agreed with patient's chart reviewed. Dr. Almendarez assigned first opinion petition supporting Sanchez act. I agree patient meets criteria for involuntary psychiatric hospitalization thus I will cosign second opinion petition supporting Sanchez act. Patient seen by me on the unit with nurse Kimberly. Patient calm cooperative with me showing little insight into her issues with these her diagnosis. She does acknowledge her daughter's concern care and assistance with her and the possibility of a placement in a facility near to where her daughter lives. However at the present time she continues to meet Sanchez act criteria thus I will cosign second opinion petition Review of Systems All other systems reviewed negative except as stated in HPI PMF - History History Provided By: Patient, Medical Record - Medical History Medical History: Medical History (Last Reviewed 04/14/18 @ 14:07 by RITA Santoro) Arthritis Atrial fibrillation CHF (congestive heart failure) Degenerative disc disease Diabetes Emphysema/COPD Gout Lupus - Surgical History Surgical History: Surgical History (Last Reviewed 04/14/18 @ 14:07 by RITA Santoro) History of cholecystectomy - Tobacco History Second Hand Smoke Exposure: Yes Tobacco Use In Past 30 Days: No Smoking Status: Never smoker Tobacco Type: Cigarettes - Alcohol History How Often Do You Have a Drink Containing Alcohol: Never - Substance Use History Substance History: No History of Abuse - Travel History Recent Travel in the [place] Within the Last 8 Weeks: No Recent Travel Out of the Country Within the Last 8 Weeks: No - Immunization History Tetanus Immunization: Unsure Medications and Allergies Active Medications: Active Medications Acetaminophen (Tylenol) 650 mg PO Q4H PRN PRN Reason: Pain 1-5 or Temp >101F Allopurinol (Zyloprim) 300 mg PO DAILY [facility] Last Admin: 04/15/18 09:59 Dose: 300 mg Apixaban (Eliquis) 5 mg PO DAILY [facility] Last Admin: 04/15/18 09:48 Dose: 5 mg Aspirin (Aspirin Chew) 81 mg PO DAILY [facility] Last Admin: 04/15/18 09:49 Dose: 81 mg Dextrose (D50w Vial) 50 ml IV.PUSH UNSCH PRN PRN Reason: PER HYPOGLYCEMIA PROTOCOL Diltiazem HCl (Cardizem) 60 mg PO TID [facility] Last Admin: 04/15/18 17:23 Dose: 60 mg Furosemide (Lasix) 40 mg PO DAILY [facility] Last Admin: 04/15/18 10:00 Dose: 40 mg Glucagon (Glucagon Inj) 1 mg OTHER PRN PRN PRN Reason: for Hypoglycemia Protocol Insulin Aspart (Novolog Insulin Correctional Sugar Inj) 0 unit SQ ACHS AND 3AM [facility]; Protocol Last Admin: 04/16/18 04:15 Dose: Not Given Magnesium Oxide (Mag-Ox) 200 mg PO DAILY [facility] Last Admin: 04/15/18 09:48 Dose: 200 mg Metoprolol Tartrate (Lopressor) 100 mg PO BID [facility] Last Admin: 04/15/18 20:34 Dose: 100 mg Montelukast Sodium (Singulair) 10 mg PO QPM [facility] Last Admin: 04/15/18 17:23 Dose: 10 mg Oxybutynin Chloride (Ditropan) 5 mg PO DAILY [facility] Last Admin: 04/15/18 09:59 Dose: 5 mg Pantoprazole Sodium (Protonix) 20 mg PO DAILY [facility] Last Admin: 04/15/18 09:47 Dose: 20 mg Insulin Glargine U- 300 Conc [Toujeo Solostar U-300 Insulin] 60 Unit Subq Qhs) 1 each SQ HS [facility] Pravastatin Sodium (Pravachol) 80 mg PO HS [facility] Last Admin: 04/15/18 20:35 Dose: 80 mg Quetiapine Fumarate (Seroquel) 100 mg PO HS [facility] Last Admin: 04/15/18 20:35 Dose: 100 mg Quetiapine Fumarate (Seroquel) 50 mg PO DAILY [facility] Last Admin: 04/15/18 09:49 Dose: 50 mg Ropinirole HCl (Requip) 1 mg PO HS [facility] Last Admin: 04/15/18 20:35 Dose: 1 mg Senna/Docusate Sodium (Anjali-Colace) 1 tab PO BID [facility] Last Admin: 04/15/18 20:35 Dose: 1 tab Trimethoprim/Sulfamethoxazole (Bactrim Ds) 1 tab PO Q12HR [facility] Stop: 04/23/18 08:59 Vitamin D (Vitamin D3) 10,000 unit PO DAILY [facility] Last Admin: 04/15/18 09:59 Dose: 10,000 unit Allergies Allergy/AdvReac Type Severity Reaction Status Date / Time cefuroxime Allergy Severe VOMITING Verified 04/13/18 14:50 AND DIARRHEA salmeterol Allergy Severe MAKES CHF Verified 04/13/18 14:50 WORSE umeclidinium Allergy Severe MAKES CHF Verified 04/13/18 14:50 WORSE vilanterol Allergy Severe MAKES CHF Verified 04/13/18 14:50 WORSE Penicillins Allergy Unknown CHILDHOOD Verified 04/13/18 14:50 albuterol Allergy Arrhythmias Verified 04/13/18 14:50 metformin Allergy Confusion Verified 04/13/18 14:50 Home Medications Medication Instructions Recorded Confirmed Type Eliquis 5 mg PO DAILY 04/13/18 04/13/18 History Paxil 04/13/18 History allopurinol 300 mg PO DAILY 04/13/18 04/13/18 History aspirin 81 mg PO DAILY 04/13/18 04/13/18 History cholecalciferol (vitamin D3) 10,000 unit PO DAILY 04/13/18 04/13/18 History [Vitamin D3] diltiazem HCl 60 mg PO TID 04/13/18 04/13/18 History esomeprazole magnesium 20 mg PO DAILY 04/13/18 04/13/18 History furosemide 40 mg PO DAILY 04/13/18 04/13/18 History insulin glargine U-300 conc 60 unit SUBCUT HS 04/13/18 04/13/18 History [Toujeo SoloStar U-300 Insulin] magnesium 250 mg PO DAILY 04/13/18 04/13/18 History metoprolol tartrate 100 mg PO BID 04/13/18 04/13/18 History montelukast 10 mg PO QPM 04/13/18 04/13/18 History oxybutynin chloride 5 mg PO DAILY 04/13/18 04/13/18 History oxycodone-acetaminophen 1 tab PO Q2H PRN 04/13/18 04/13/18 History quetiapine [Seroquel] 50 mg PO DAILY 04/13/18 04/13/18 History quetiapine [Seroquel] 100 mg PO HS 04/13/18 04/13/18 History ropinirole 1 mg PO HS 04/13/18 04/13/18 History simvastatin 40 mg PO QPM 04/13/18 04/13/18 History Exam Vital signs: Vital Signs 04/15/18 17:52 04/16/18 06:00 Temperature 98.2 F 97.9 F Pulse Rate 87 91 H Respiratory Rate 18 16 Blood Pressure 156/64 H 119/71 Pulse Oximetry 97 96 Intake & Output 04/15/18 04/16/18 04/16/18 18:59 06:59 18:59 Intake Total 480 / 480 600 / 600 Output Total 126 / 126 Balance 480 / 480 474 / 474 Intake: Oral 480 / 480 600 / 600 Output: Urine 125 / 125 Urine/Stool Mix Other: # Voids 1 # Bowel Movements 1 Mental Status Examination Appearance: Disheveled Consciousness: Alert Orientation: x4 Motor Activity: Other (Lying on the bed) Speech: Unremarkable Language: Adequate Fund of Knowledge: Adequate Attention and Concentration: Adequate Memory: Unremarkable Mood: Anxious Affect: Anxious Thought Process & Associations: Tangential Thought Content: Hallucinations, Delusional Hallucination Type: Visual Delusion Type: Bizarre, Paranoid (Reported) Suicidal Ideation: No Suicidal Plan: No Suicidal Intention: No Homicidal Ideation: No Homicidal Plan: No Homicidal Intention: No Insight: Fair Judgment: Impulsive Assessment and Plan - Assessment (1) Unspecified psychosis Code(s): F29 - Unspecified psychosis not due to a substance or known physiological condition Status: Acute - Plan Plan: At this time patient does not meet criteria for further inpatient psychiatric stay under the Sanchez act thus I will cosign second opinion petition supporting Sanchez act Justification for Continued Inpatient Stay: At this time patient would decompensate a place to a lower level of care Discharge Planning: To be determined
--- NOTE | 2018-04-16 10:03 | P.CON ---
History of Present Illness Service: [facility] Consult date: 04/16/18 Requesting Physician: Prabhakar Almendarez Reason for Consult: Urinary tract infection Primary Care Provider: UNKNOWN Chief Complaint: "I have hallucinations" History of Present Illness: Patient is a 62-year-old female with past medical history of atrial fibrillation , congestive heart failure, degenerative disc disease, gout, lupus, COPD O2 dependent who initially came to the hospital [facility] by daughter for psychotic behavior. Patient states that I was having hallucinations. Review of records patient states that she thinks the half-way staff and the police officer crime prevention are trying to kill her. She is now admitted to medical psychiatry unit for further evaluation. Patient found to have urinary tract infection. Consulted for assistance with urinary tract infection. Patient seen and examined today. Morbidly obese. States that at home she is able to get out of bed and being in the commode or wheel herself in a motorized wheelchair towards the bathroom but she is unable to right now at the hospital. She has been requesting for commode. As per nursing, patient has not been able to get out of bed or stand up or move around. States that she has burning sensation when she states that her inside vagina feels discomfort. Patient states she has been on O2 24/7, does not take any inhalers. Does not have any nebulizer as she is unable to take albuterol secondary to her A. fib. Otherwise , denies pain and discomfort. Denies increasing SOB/ dyspnea. Denies chest pain, palpitations, headaches, dizziness. Denies fevers, chills, n/v/d. Review of Systems All other systems reviewed negative except as stated in HPI PMFSH - History History Provided By: Patient, Medical Record - Medical History Medical History: Medical History (Last Reviewed 04/14/18 @ 14:07 by RITA Santoro) Arthritis Atrial fibrillation CHF (congestive heart failure) Degenerative disc disease Diabetes Emphysema/COPD Gout Lupus - Surgical History Surgical History: Surgical History (Last Reviewed 04/14/18 @ 14:07 by RITA Santoro) History of cholecystectomy - Family History Family History: Family History (Last Updated 04/16/18 @ 11:02 by RITA Mendoza) Father Heart disease Mother Heart disease Mother Heart disease - Social History I have reviewed the patient's Social History: Yes - Tobacco History Second Hand Smoke Exposure: Yes Tobacco Use In Past 30 Days: No Smoking Status: Never smoker Tobacco Type: Cigarettes - Alcohol History How Often Do You Have a Drink Containing Alcohol: Never - Substance Use History Substance History: No History of Abuse - Travel History Recent Travel in the [place] Within the Last 8 Weeks: No Recent Travel Out of the Country Within the Last 8 Weeks: No - Immunization History Tetanus Immunization: Unsure Medications and Allergies Active Medications: Active Medications Acetaminophen (Tylenol) 650 mg PO Q4H PRN PRN Reason: Pain 1-5 or Temp >101F Allopurinol (Zyloprim) 300 mg PO DAILY [facility] Last Admin: 04/15/18 09:59 Dose: 300 mg Apixaban (Eliquis) 5 mg PO DAILY [facility] Last Admin: 04/15/18 09:48 Dose: 5 mg Aspirin (Aspirin Chew) 81 mg PO DAILY [facility] Last Admin: 04/15/18 09:49 Dose: 81 mg Dextrose (D50w Vial) 50 ml IV.PUSH UNSCH PRN PRN Reason: PER HYPOGLYCEMIA PROTOCOL Diltiazem HCl (Cardizem) 60 mg PO TID [facility] Last Admin: 04/15/18 17:23 Dose: 60 mg Furosemide (Lasix) 40 mg PO DAILY [facility] Last Admin: 04/15/18 10:00 Dose: 40 mg Glucagon (Glucagon Inj) 1 mg OTHER PRN PRN PRN Reason: for Hypoglycemia Protocol Insulin Aspart (Novolog Insulin Correctional Sugar Inj) 0 unit SQ ACHS AND 3AM [facility]; Protocol Last Admin: 04/16/18 04:15 Dose: Not Given Magnesium Oxide (Mag-Ox) 200 mg PO DAILY [facility] Last Admin: 04/15/18 09:48 Dose: 200 mg Metoprolol Tartrate (Lopressor) 100 mg PO BID [facility] Last Admin: 04/15/18 20:34 Dose: 100 mg Montelukast Sodium (Singulair) 10 mg PO QPM [facility] Last Admin: 04/15/18 17:23 Dose: 10 mg Oxybutynin Chloride (Ditropan) 5 mg PO DAILY [facility] Last Admin: 04/15/18 09:59 Dose: 5 mg Pantoprazole Sodium (Protonix) 20 mg PO DAILY [facility] Last Admin: 04/15/18 09:47 Dose: 20 mg Insulin Glargine U- 300 Conc [Toujeo Solostar U-300 Insulin] 60 Unit Subq Qhs) 1 each SQ HS [facility] Pravastatin Sodium (Pravachol) 80 mg PO HS [facility] Last Admin: 04/15/18 20:35 Dose: 80 mg Quetiapine Fumarate (Seroquel) 100 mg PO HS [facility] Last Admin: 04/15/18 20:35 Dose: 100 mg Quetiapine Fumarate (Seroquel) 50 mg PO DAILY [facility] Last Admin: 04/15/18 09:49 Dose: 50 mg Ropinirole HCl (Requip) 1 mg PO HS [facility] Last Admin: 04/15/18 20:35 Dose: 1 mg Senna/Docusate Sodium (Anjali-Colace) 1 tab PO BID [facility] Last Admin: 04/15/18 20:35 Dose: 1 tab Trimethoprim/Sulfamethoxazole (Bactrim Ds) 1 tab PO Q12HR [facility] Stop: 04/23/18 08:59 Vitamin D (Vitamin D3) 10,000 unit PO DAILY [facility] Last Admin: 04/15/18 09:59 Dose: 10,000 unit Allergies Allergy/AdvReac Type Severity Reaction Status Date / Time cefuroxime Allergy Severe VOMITING Verified 04/13/18 14:50 AND DIARRHEA salmeterol Allergy Severe MAKES CHF Verified 04/13/18 14:50 WORSE umeclidinium Allergy Severe MAKES CHF Verified 04/13/18 14:50 WORSE vilanterol Allergy Severe MAKES CHF Verified 04/13/18 14:50 WORSE Penicillins Allergy Unknown CHILDHOOD Verified 04/13/18 14:50 albuterol Allergy Arrhythmias Verified 04/13/18 14:50 metformin Allergy Confusion Verified 04/13/18 14:50 Home Medications Medication Instructions Recorded Confirmed Type Eliquis 5 mg PO DAILY 04/13/18 04/13/18 History Paxil 04/13/18 History allopurinol 300 mg PO DAILY 04/13/18 04/13/18 History aspirin 81 mg PO DAILY 04/13/18 04/13/18 History cholecalciferol (vitamin D3) 10,000 unit PO DAILY 04/13/18 04/13/18 History [Vitamin D3] diltiazem HCl 60 mg PO TID 04/13/18 04/13/18 History esomeprazole magnesium 20 mg PO DAILY 04/13/18 04/13/18 History furosemide 40 mg PO DAILY 04/13/18 04/13/18 History insulin glargine U-300 conc 60 unit SUBCUT HS 04/13/18 04/13/18 History [Touondina ChapinoStar U-300 Insulin] magnesium 250 mg PO DAILY 04/13/18 04/13/18 History metoprolol tartrate 100 mg PO BID 04/13/18 04/13/18 History montelukast 10 mg PO QPM 04/13/18 04/13/18 History oxybutynin chloride 5 mg PO DAILY 04/13/18 04/13/18 History oxycodone-acetaminophen 1 tab PO Q2H PRN 04/13/18 04/13/18 History quetiapine [Seroquel] 50 mg PO DAILY 04/13/18 04/13/18 History quetiapine [Seroquel] 100 mg PO HS 04/13/18 04/13/18 History ropinirole 1 mg PO HS 04/13/18 04/13/18 History simvastatin 40 mg PO QPM 04/13/18 04/13/18 History Physical Exam Vital signs: Vital Signs 04/15/18 17:52 04/16/18 06:00 Temperature 98.2 F 97.9 F Pulse Rate 87 91 H Respiratory Rate 18 16 Blood Pressure 156/64 H 119/71 Pulse Oximetry 97 96 Intake & Output 04/15/18 04/16/18 04/16/18 18:59 06:59 18:59 Intake Total 480 / 480 600 / 600 Output Total 126 / 126 Balance 480 / 480 474 / 474 Intake: Oral 480 / 480 600 / 600 Output: Urine 125 / 125 Urine/Stool Mix 1 / 1 Other: # Voids 1 # Bowel Movements 1 Narrative: GENERAL: This is a morbidly obese patient, in no apparent distress. SKIN: Warm and dry. HEENT: Normocephalic. Pupils equal round and reactive. Nose without bleeding. Airway patent. NECK: Trachea midline. CARDIOVASCULAR: Irregular rate and rhythm without murmurs, gallops, or rubs. RESPIRATORY: Clear to auscultation. Breath sounds equal bilaterally. No wheezes , rales, or rhonchi. GASTROINTESTINAL: Abdomen soft, non-tender, obese. Bowel Sounds normoactive x4. MUSCULOSKELETAL: Extremities without clubbing, cyanosis, or edema. NEUROLOGICAL: Awake and alert. Oriented to place, person.Moves all extremities, bilateral lower extremity weakness. Normal speech. Results - Labs CBC & Chem 7: 04/13/18 16:25 04/15/18 06:50 Labs: Laboratory Results - last 24 hr 04/15/18 04/15/18 04/15/18 06:50 11:40 17:20 POC Glucose 148 H 210 H Hemoglobin A1c 7.9 H 04/15/18 04/16/18 04/16/18 20:30 04:11 07:44 POC Glucose 158 H 157 H 165 H Hemoglobin A1c Assessment and Plan - Plan Patient is a 62-year-old female with past medical history of atrial fibrillation , congestive heart failure, degenerative disc disease, gout, lupus, COPD O2 dependent who initially came to the hospital [facility] by daughter for psychotic behavior. She is now admitted to medical psychiatry unit for further evaluation. Hallucinations, psychosis -Managed by psychiatry team Urinary tract infection, acute -Cultures came back with Citrobacter, sensitive to Bactrim. -Patient was given ceftriaxone in the ED, will start Bactrim p.o. -Incontinent of bowel and bladder. Huff catheter insertion for skin protection and retention. -Discussed with nursing Huff catheter should not be more than 3 days. Will discontinue Wednesday. Will ask physical therapy to evaluate patient if she is able to get out of bed and move to a commode or able to use a bedpan. Generalized weakness -PT eval and treat Atrial fibrillation, chronic HTN HLD -Continue aspirin, Cardizem 60 mg 3 times daily, Eliquis 5 mg twice daily, metoprolol 100 mg twice daily, Lasix 40 mg daily -Continue pravastatin -Monitor vital signs DM 2, uncontrolled -Diabetic diet -Hemoglobin A1c 7.9 -Continue insulin sliding scale, On Toujeo 60 units QHS. Non Formulary -Start Levemir 10units BID Gout -Continue allopurinol Restless leg syndrome -Continue ropinirole DVT prop eliquis Code Status: Full Code Discussed Condition With: Patient, nursing Discharge Planning: DC disposition by primary team
[2018-04-16] MEDS: Furosemide 40 MG Tablet PO SCH (10:12)
[2018-04-16] MEDS: Metoprolol Tartrate 100 MG Tablet PO SCH ×2 (10:13→21:26)
[2018-04-16] MEDS: Senna/Docusate Sodium 8.6/50 MG Tablet PO SCH ×2 (10:13→21:26)
[2018-04-16] MEDS: Montelukast 10 MG Tablet PO SCH ×2 (10:14→17:58)
[2018-04-16] MEDS: Allopurinol 300 MG Tablet PO SCH (10:15)
[2018-04-16] MEDS: QUEtiapine 25 MG Tablet PO SCH (10:15)
[2018-04-16] MEDS: dilTIAZem 60 MG Tablet PO SCH ×3 (10:15→17:58)
[2018-04-16] MEDS: Magnesium Oxide 400 MG Tablet PO SCH (10:16)
[2018-04-16] MEDS: Pantoprazole Sodium 20 MG DR Tablet PO SCH (10:17)
--- NOTE | 2018-04-16 14:13 | P.PNPSY ---
Subjective Remarks: This is a request for second opinion. Admission note was reviewed and I agree with the history. Patient was seen and case was discussed with nursing. Patient is admitted for paranoid delusions and poor compliance with medications. Patient believes that staff was trying to kill her . She was also complaining of visual hallucinations. Mental Status Examination Appearance: Disheveled Consciousness: Alert Orientation: x4 Motor Activity: Other (Lying on the bed) Speech: Unremarkable Language: Adequate Fund of Knowledge: Adequate Attention and Concentration: Adequate Memory: Unremarkable Mood: Anxious Affect: Anxious Thought Process & Associations: Tangential Thought Content: Hallucinations, Delusional Hallucination Type: Visual Delusion Type: Bizarre, Paranoid (Reported) Suicidal Ideation: No Suicidal Plan: No Suicidal Intention: No Homicidal Ideation: No Homicidal Plan: No Homicidal Intention: No Insight: Fair Judgment: Impulsive Assessment and Plan - Assessment (1) Unspecified psychosis Code(s): F29 - Unspecified psychosis not due to a substance or known physiological condition Status: Acute - Plan Plan: I agree with the first opinion to continue petition. Criteria include acute psychosis Justification for Continued Inpatient Stay: Patient would decompensate in a less restrictive setting
[2018-04-16] MEDS: Insulin Detemir Inj 1,000 UNIT/10 ML Vial SQ SCH ×2 (14:51→21:26)
[2018-04-16] MEDS: Acetaminophen 325 MG Tablet PO PRN (17:57)
[2018-04-16] MEDS: QUEtiapine 100 MG Tablet PO SCH (21:26)
[2018-04-17] MEDS: Acetaminophen 325 MG Tablet PO PRN ×3 (02:32→17:36)
[2018-04-17] MEDS: Insulin NovoLOG Aspart Correctional Sugar Inj SQ SCH ×5 (02:32→20:45)
[2018-04-17 08:03] LABS: Baso % (Auto) 0.3 % (0.0-2.0); Eos # (Auto) 0.2 th/mm3 (0.0-0.4); Eos % (Auto) 3.1 % (0.0-4.0); Hematocrit 31.7 % (35.0-46.0); Hemoglobin 10.5 gm/dL (11.6-15.3); Lymph # (Auto) 1.5 th/mm3 (1.0-4.8); Lymph % (Auto) 22.8 % (9.0-44.0); Mean Corpuscular HGB Conc 33.1 % (32.0-36.0); Mean Corpuscular Hemoglobin 26.8 pg (27.0-34.0); Mean Corpuscular Volume 80.8 fL (80.0-100.0); Mean Platelet Volume 9.4 fL (7.0-11.0); Mono # (Auto) 0.4 th/mm3 (0.0-0.9); Mono % (Auto) 6.2 % (0.0-8.0); Neut # (Auto) 4.4 th/mm3 (1.8-7.7); Neut % (Auto) 67.6 % (16.0-70.0); Platelet Count 108 th/mm3 (150-450); Red Blood Count 3.93 mil/mm3 (4.00-5.30); Red Cell Distribution Width 20.4 % (11.6-17.2); White Blood Count 6.5 th/mm3 (4.0-11.0)
[2018-04-17 08:24] LABS: Calcium 7.7 mg/dL (8.5-10.1); Carbon Dioxide 33.4 meq/L (21.0-32.0)
[2018-04-17] MEDS: dilTIAZem 60 MG Tablet PO SCH ×3 (08:25→17:56)
[2018-04-17] MEDS: Allopurinol 300 MG Tablet PO SCH (08:25)
[2018-04-17] MEDS: Insulin Detemir Inj 1,000 UNIT/10 ML Vial SQ SCH ×2 (08:25→20:45)
[2018-04-17] MEDS: QUEtiapine 25 MG Tablet PO SCH (08:25)
[2018-04-17] MEDS: Magnesium Oxide 400 MG Tablet PO SCH (08:25)
[2018-04-17] MEDS: Metoprolol Tartrate 100 MG Tablet PO SCH ×2 (08:26→20:34)
[2018-04-17] MEDS: Furosemide 40 MG Tablet PO SCH (08:26)
[2018-04-17] MEDS: Pantoprazole Sodium 20 MG DR Tablet PO SCH (08:26)
[2018-04-17] MEDS: Senna/Docusate Sodium 8.6/50 MG Tablet PO SCH ×2 (08:26→20:35)
--- NOTE | 2018-04-17 11:39 | P.PNIM ---
Subjective Interval history: Follow-up visit atrial fibrillation, congestive heart failure, degenerative disc disease, gout, lupus, COPD O2 dependent. Patient seen and examined today laying in bed. Reports she is doing okay. Wanting to get out of bed and being a commode. Questionable ability to get out of bed or ambulate. As per nursing , no acute issues overnight. Physical Exam Vital signs: Vital Signs 04/16/18 18:06 04/17/18 05:52 Temperature 98.1 F 97.6 F Pulse Rate 86 87 Respiratory Rate 18 15 Blood Pressure 139/77 109/55 L Pulse Oximetry 97 95 Intake & Output 04/16/18 04/17/18 04/17/18 18:59 06:59 18:59 Intake Total 1130 / 1130 Output Total 1000 / 1000 Balance 130 / 130 Intake: Oral 1130 / 1130 Output: Urine Amount (Catheter) 1000 / 1000 Indwelling Urethral Catheter 1000 / 1000 Narrative: GENERAL: This is a morbidly obese patient, in no apparent distress. SKIN: Warm and dry. HEENT: Normocephalic. Pupils equal round and reactive. Nose without bleeding. Airway patent. NECK: Trachea midline. CARDIOVASCULAR: Irregular rate and rhythm without murmurs, gallops, or rubs. RESPIRATORY: Clear to auscultation. Breath sounds equal bilaterally. No wheezes , rales, or rhonchi. GASTROINTESTINAL: Abdomen soft, non-tender, obese. Bowel Sounds normoactive x4. MUSCULOSKELETAL: Extremities without clubbing, cyanosis, or edema. NEUROLOGICAL: Awake and alert. Oriented to place, person.Moves all extremities, bilateral lower extremity weakness. Normal speech. - Urinary Catheter Management Indwelling Urethral Catheter Cath placed during this visit: yes Reason for continuing: Other continuation reason Insertion date: 04/16/18 Insertion time: 12:00 Results - Labs CBC & Chem 7: 04/17/18 07:31 04/17/18 07:31 Laboratory Results - last 24 hr 04/16/18 04/16/18 04/17/18 17:14 21:05 02:23 WBC RBC Hgb Hct MCV MCH MCHC RDW Plt Count MPV Neut % (Auto) Lymph % (Auto) [place] % (Auto) Eos % (Auto) Baso % (Auto) Neut # (Auto) Lymph # (Auto) [place] # (Auto) Eos # (Auto) Baso # (Auto) WBC Differential Differential Comment Sodium Potassium Chloride Carbon Dioxide Anion Gap BUN Creatinine Estimated GFR POC Glucose 232 H 170 H 179 H Random Glucose Calcium 04/17/18 04/17/18 04/17/18 07:31 07:31 07:44 WBC 6.5 RBC 3.93 L Hgb 10.5 L Hct 31.7 L MCV 80.8 MCH 26.8 L MCHC 33.1 RDW 20.4 H Plt Count 108 L MPV 9.4 Neut % (Auto) 67.6 Lymph % (Auto) 22.8 [place] % (Auto) 6.2 Eos % (Auto) 3.1 Baso % (Auto) 0.3 Neut # (Auto) 4.4 Lymph # (Auto) 1.5 [place] # (Auto) 0.4 Eos # (Auto) 0.2 Baso # (Auto) 0.0 WBC Differential . Differential Comment Auto diff final Sodium 143 Potassium 4.0 Chloride 103 Carbon Dioxide 33.4 H Anion Gap 7 BUN 19 H Creatinine 0.91 Estimated GFR 62 L POC Glucose 106 Random Glucose 110 H Calcium 7.7 L 04/17/18 11:28 WBC RBC Hgb Hct MCV MCH MCHC RDW Plt Count MPV Neut % (Auto) Lymph % (Auto) [place] % (Auto) Eos % (Auto) Baso % (Auto) Neut # (Auto) Lymph # (Auto) [place] # (Auto) Eos # (Auto) Baso # (Auto) WBC Differential Differential Comment Sodium Potassium Chloride Carbon Dioxide Anion Gap BUN Creatinine Estimated GFR POC Glucose 120 H Random Glucose Calcium Assessment and Plan - Plan Patient is a 62-year-old female with past medical history of atrial fibrillation , congestive heart failure, degenerative disc disease, gout, lupus, COPD O2 dependent who initially came to the hospital [facility] by daughter for psychotic behavior. She is now admitted to medical psychiatry unit for further evaluation. Hallucinations, psychosis -Managed by psychiatry team Urinary tract infection, acute -Cultures came back with Citrobacter, sensitive to Bactrim. -Patient was given ceftriaxone in the ED, will start Bactrim p.o. -Incontinent of bowel and bladder. Huff catheter insertion for skin protection and retention. -Discussed with nursing Huff catheter should not be more than 3 days. Will discontinue Wednesday. Will ask physical therapy to evaluate patient if she is able to get out of bed and move to a commode or able to use a bedpan. Generalized weakness -PT eval and treat Atrial fibrillation, chronic HTN HLD -Continue aspirin, Cardizem 60 mg 3 times daily, Eliquis 5 mg twice daily, metoprolol 100 mg twice daily, Lasix 40 mg daily -Continue pravastatin -Monitor vital signs DM 2, uncontrolled -Diabetic diet -Hemoglobin A1c 7.9 -Continue insulin sliding scale, On Toujeo 60 units QHS. Non Formulary -Levemir 10units BID Gout -Continue allopurinol Restless leg syndrome -Continue ropinirole DVT prop eliquis Code Status: Full code Discussed Condition With: Patient, nursing Discharge Planning: DC disposition by primary team
--- NOTE | 2018-04-17 13:07 | P.PNPSY ---
Subjective Remarks: Patient was seen and case discussed with nursing. Patient is less delusional today. She realizes her thoughts were not based in reality. She is taking her medications. Pleasant and cooperative during exam. At this time, she denies auditory or visual hallucinations. No specific's delusions were elicited. Behaving well on the unit Mental Status Examination Appearance: Disheveled Consciousness: Alert Orientation: x4 Motor Activity: Other (Lying on the bed) Speech: Unremarkable Language: Adequate Fund of Knowledge: Adequate Attention and Concentration: Adequate Memory: Unremarkable Mood: Anxious Affect: Anxious Thought Process & Associations: Circumstantial Thought Content: Depersonalization Delusion Type: None Suicidal Ideation: No Suicidal Plan: No Suicidal Intention: No Homicidal Ideation: No Homicidal Plan: No Homicidal Intention: No Insight: Fair Judgment: Impulsive Assessment and Plan - Assessment (1) Unspecified psychosis Code(s): F29 - Unspecified psychosis not due to a substance or known physiological condition Status: Acute - Plan Plan: Estimated LOS: [] days Continue current treatment plan Justification for Continued Inpatient Stay: Patient would decompensate in a less restrictive setting
[2018-04-17] MEDS: Montelukast 10 MG Tablet PO SCH (17:36)
[2018-04-17] MEDS: QUEtiapine 100 MG Tablet PO SCH (20:34)
[2018-04-18] MEDS: Insulin NovoLOG Aspart Correctional Sugar Inj SQ SCH ×5 (03:32→20:51)
[2018-04-18] MEDS: Allopurinol 300 MG Tablet PO SCH (08:14)
[2018-04-18] MEDS: Metoprolol Tartrate 100 MG Tablet PO SCH ×2 (08:14→20:49)
[2018-04-18] MEDS: dilTIAZem 60 MG Tablet PO SCH ×3 (08:15→18:09)
[2018-04-18] MEDS: Furosemide 40 MG Tablet PO SCH (08:15)
[2018-04-18] MEDS: Magnesium Oxide 400 MG Tablet PO SCH (08:15)
[2018-04-18] MEDS: Pantoprazole Sodium 20 MG DR Tablet PO SCH (08:15)
--- NOTE | 2018-04-18 08:17 | P.PNPSY ---
Subjective Remarks: Patient seen for follow-up, chart reviewed. Discussion with nursing staff reported that patient has been compliant with meds, denies any auditory or visual hallucinations, attending physical therapy, and realizes that prior delusions were delusions. Patient was found sitting in hospital bed with nasal canula and eating breakfast. Patient reports doing much better and continues to express her desire to get into an LONG TERM closer to her daughter Mayda. Patient reports her mood is fine and that she gets occasionally tearful when she thinks about her family and denies any suicidal ideation or thoughts of harming others and denies any auditory or visual hallucinations and reports sleeping much better ever since seeing her family on Wednesday. Patient reports that the reason she feared her was going to be murdered in prior living facility is because on , she kept having her name called and she went outside and found masked individual yelling that he was going to kill her and her . Patient reports that she needs to live in a new living facility in order to move on and that meeting with her daughter Mayda yesterday went well even though patient realizes it is because of Mayda she is here and patient reports thinking that the medication has helped her. Mental Status Examination Appearance: Disheveled Consciousness: Alert Orientation: x4 Motor Activity: Other (Lying on the bed) Speech: Unremarkable Language: Adequate Fund of Knowledge: Adequate Attention and Concentration: Adequate Memory: Unremarkable Mood: Anxious Affect: Anxious Thought Process & Associations: Circumstantial Thought Content: Depersonalization Hallucination Type: Visual Delusion Type: None Suicidal Ideation: No Suicidal Plan: No Suicidal Intention: No Homicidal Ideation: No Homicidal Plan: No Homicidal Intention: No Insight: Fair Judgment: Impulsive
[2018-04-18] MEDS: Senna/Docusate Sodium 8.6/50 MG Tablet PO SCH ×2 (08:19→20:59)
[2018-04-18] MEDS: QUEtiapine 25 MG Tablet PO SCH (08:19)
[2018-04-18] MEDS: Insulin Detemir Inj 1,000 UNIT/10 ML Vial SQ SCH ×2 (08:19→20:56)
--- NOTE | 2018-04-18 10:45 | P.PNIM ---
Subjective Interval history: Follow-up visit atrial fibrillation, congestive heart failure, degenerative disc disease, gout, lupus, COPD O2 dependent. Patient seen and examined today laying in bed. Reports she is doing okay. Assisted with sitting at the edge of bed. Denies increasing SOB/ dyspnea. Denies chest pain, palpitations, headaches, dizziness. Denies fevers, chills, n/v/d. As per nursing, no acute issues overnight. Physical Exam Vital signs: Vital Signs 04/17/18 18:06 04/17/18 20:00 04/17/18 22:30 Temperature 98.6 F Pulse Rate 74 94 H Respiratory Rate 18 18 Blood Pressure 133/71 Pulse Oximetry 87 L 96 96 04/18/18 05:47 Temperature 99.0 F Pulse Rate 89 Respiratory Rate 16 Blood Pressure 111/56 L Pulse Oximetry 97 Intake & Output 04/17/18 04/18/18 04/18/18 18:59 06:59 18:59 Intake Total 580 / 580 Output Total 900 / 900 Balance -320 / -320 Intake: Oral 480 / 480 Oral Supplement 100 / 100 Output: Urine 900 / 900 Narrative: GENERAL: This is a morbidly obese patient, in no apparent distress. SKIN: Warm and dry. HEENT: Normocephalic. Pupils equal round and reactive. Nose without bleeding. Airway patent. NECK: Trachea midline. CARDIOVASCULAR: Irregular rate and rhythm without murmurs, gallops, or rubs. RESPIRATORY: Clear to auscultation. Breath sounds equal bilaterally. No wheezes , rales, or rhonchi. GASTROINTESTINAL: Abdomen soft, non-tender, obese. Bowel Sounds normoactive x4. Huff draining clear yellow urine MUSCULOSKELETAL: Extremities without clubbing, cyanosis, or edema. NEUROLOGICAL: Awake and alert. Oriented to place, person.Moves all extremities, bilateral lower extremity weakness. Normal speech. - Urinary Catheter Management Indwelling Urethral Catheter Cath placed during this visit: yes Reason for continuing: Other continuation reason Insertion date: 04/16/18 Insertion time: 12:00 Results - Labs CBC & Chem 7: 04/17/18 07:31 04/17/18 07:31 Laboratory Results - last 24 hr 04/17/18 04/17/18 04/17/18 11:28 16:40 20:45 POC Glucose 120 H 123 H 190 H 04/18/18 04/18/1804/18/18 02:39 06:23 07:36 POC Glucose 123 H 106 109 Assessment and Plan - Plan Patient is a 62-year-old female with past medical history of atrial fibrillation , congestive heart failure, degenerative disc disease, gout, lupus, COPD O2 dependent who initially came to the hospital [facility] by daughter for psychotic behavior. She is now admitted to medical psychiatry unit for further evaluation. Hallucinations, psychosis -Managed by psychiatry team Urinary tract infection, acute -Cultures came back with Citrobacter, sensitive to Bactrim. -Patient was given ceftriaxone in the ED, will start Bactrim p.o. -Incontinent of bowel and bladder. Huff catheter insertion for skin protection and retention. -DC Huff Generalized weakness -PT eval and treat -Increase activity Atrial fibrillation, chronic HTN HLD -Continue aspirin, Cardizem 60 mg 3 times daily, Eliquis 5 mg twice daily, metoprolol 100 mg twice daily, Lasix 40 mg daily -Continue pravastatin -Monitor vital signs DM 2, uncontrolled -Diabetic diet -Hemoglobin A1c 7.9 -Continue insulin sliding scale, On Toujeo 60 units QHS. Non Formulary -Levemir 10units BID Gout -Continue allopurinol Restless leg syndrome -Continue ropinirole DVT prop eliquis Code Status: Full C[place]e Discussed Condition With: Patient, nursing Discharge Planning: DC disposition by primary team
[2018-04-18] MEDS: Acetaminophen 325 MG Tablet PO PRN (13:45)
--- NOTE | 2018-04-18 16:19 | P.PNPSY ---
Subjective Remarks: Patient seen for follow-up, chart reviewed. Discussion with nursing staff reported that patient alert and oriented x3, had expressed realizing she had delusions prior to her admission denying. Patient was found lying hospital bed noted B, cooperative. Patient states that she cannot move referring to difficulty with her weight and requiring assistance to sit up from the bed as well as transport to the bathroom. Patient states that she had visited with her daughter over the weekend which she states went well and mentions that she was hallucinating and delusional prior to her admission. Patient continues report the events she perceived as are happening at that time but denies any further paranoid ideation or hallucinations here in the hospital. Discussion about having patient go to a nursing facility due to her current need of rehabilitation was reviewed which she agreed. Patient at this time denies any suicidal homicidal ideations denies any perceptional disturbances at this time. Review of Systems All other systems reviewed negative except as stated in HPI Mental Status Examination Appearance: Appropriate Consciousness: Alert Orientation: x4 Motor Activity: Other (Lying on the bed) Speech: Unremarkable Language: Adequate Fund of Knowledge: Adequate Attention and Concentration: Adequate Memory: Unremarkable Mood: Anxious Affect: Anxious Thought Process & Associations: Intact, Linear Thought Content: Appropriate, Hallucinations (Denies at this time) Hallucination Type: None Delusion Type: None Suicidal Ideation: No Suicidal Plan: No Suicidal Intention: No Homicidal Ideation: No Homicidal Plan: No Homicidal Intention: No Insight: Fair Judgment: Impulsive Assessment and Plan - Assessment (1) Unspecified psychosis Code(s): F29 - Unspecified psychosis not due to a substance or known physiological condition Status: Acute - Plan Plan: Patient currently not endorsing any perceptional services or delusions at this time. Patient has been compliant with medications. We will continue recommendations as per prior medical team. Patient will require assisted facility for rehabilitation upon discharge. We will continue current treatment. We will continue to look for an appropriate facility such as a [facility]. We will continue to monitor mood and behavior. Discharge planning a progress. Justification for Continued Inpatient Stay: At risk of further decompensation at lower level care.
[2018-04-18] MEDS: Montelukast 10 MG Tablet PO SCH (18:09)
[2018-04-18] MEDS: QUEtiapine 100 MG Tablet PO SCH (20:49)
[2018-04-19] MEDS: Insulin NovoLOG Aspart Correctional Sugar Inj SQ SCH ×5 (05:08→20:34)
[2018-04-19] MEDS: Metoprolol Tartrate 100 MG Tablet PO SCH ×2 (08:12→20:31)
[2018-04-19] MEDS: Furosemide 40 MG Tablet PO SCH (08:12)
[2018-04-19] MEDS: Pantoprazole Sodium 20 MG DR Tablet PO SCH (08:12)
[2018-04-19] MEDS: Magnesium Oxide 400 MG Tablet PO SCH (08:12)
[2018-04-19] MEDS: dilTIAZem 60 MG Tablet PO SCH ×3 (08:13→17:09)
[2018-04-19] MEDS: Senna/Docusate Sodium 8.6/50 MG Tablet PO SCH ×2 (08:13→20:30)
[2018-04-19] MEDS: Allopurinol 300 MG Tablet PO SCH (08:13)
[2018-04-19] MEDS: Insulin Detemir Inj 1,000 UNIT/10 ML Vial SQ SCH ×2 (08:14→20:36)
[2018-04-19] MEDS: QUEtiapine 25 MG Tablet PO SCH (08:14)
--- NOTE | 2018-04-19 11:17 | P.PNIM ---
Subjective Interval history: Follow-up visit atrial fibrillation, congestive heart failure, degenerative disc disease, gout, lupus, COPD O2 dependent. Patient seen and examined today laying in bed. Reports she is doing okay. Denies increasing SOB/ dyspnea. Denies chest pain, palpitations, headaches, dizziness. Denies fevers, chills, n/ v/d. As per nursing, no acute issues overnight. Physical Exam Vital signs: Vital Signs 04/18/18 11:58 04/18/18 18:00 04/18/18 19:57 Temperature 97.8 F Pulse Rate 76 Respiratory Rate 17 Blood Pressure 120/60 Pulse Oximetry 96 95 96 04/19/18 06:00 04/19/18 10:26 Temperature 97.3 F L Pulse Rate 72 Respiratory Rate 20 Blood Pressure 121/73 Pulse Oximetry 98 98 Intake & Output 04/18/18 04/19/18 04/19/18 18:59 06:59 18:59 Intake Total 1320 / 1320 340 / 340 Balance 1320 / 1320 340 / 340 Intake: Oral 1320 / 1320 240 / 240 Oral Supplement 100 / 100 Other: # Voids 3 Narrative: GENERAL: This is a morbidly obese patient, in no apparent distress. SKIN: Warm and dry. HEENT: Normocephalic. Pupils equal round and reactive. Nose without bleeding. Airway patent. NECK: Trachea midline. CARDIOVASCULAR: Irregular rate and rhythm without murmurs, gallops, or rubs. RESPIRATORY: Clear to auscultation. Breath sounds equal bilaterally. No wheezes , rales, or rhonchi. GASTROINTESTINAL: Abdomen soft, non-tender, obese. Bowel Sounds normoactive x4. MUSCULOSKELETAL: Extremities without clubbing, cyanosis, or edema. NEUROLOGICAL: Awake and alert. Oriented to place, person.Moves all extremities, bilateral lower extremity weakness. Normal speech. - Urinary Catheter Management Indwelling Urethral Catheter Cath placed during this visit: yes, but has since been removed by the nurse Reason for continuing: Decision to DC catheter Insertion date: 04/16/18 Insertion time: 12:00 Removal date: 04/18/18 Removal time: 10:50 Results - Labs CBC & Chem 7: 04/17/18 07:31 04/17/18 07:31 Laboratory Results - last 24 hr 04/18/18 04/18/18 04/18/18 11:24 16:17 19:56 POC Glucose 148 H 127 H 160 H 04/19/18 04/19/18 04/19/18 04:29 07:27 10:40 POC Glucose 102 113 H 144 H Assessment and Plan - Plan Patient is a 62-year-old female with past medical history of atrial fibrillation , congestive heart failure, degenerative disc disease, gout, lupus, COPD O2 dependent who initially came to the hospital [facility] by daughter for psychotic behavior. She is now admitted to medical psychiatry unit for further evaluation. Hallucinations, psychosis -Managed by psychiatry team Urinary tract infection, acute -Cultures came back with Citrobacter, sensitive to Bactrim. -Patient was given ceftriaxone in the ED, Bactrim p.o. -Huff DC, voiding okay -To complete Bactrim Generalized weakness -PT eval and treat -Increase activity Atrial fibrillation, chronic HTN HLD -Continue aspirin, Cardizem 60 mg 3 times daily, Eliquis 5 mg twice daily, metoprolol 100 mg twice daily, Lasix 40 mg daily -Continue pravastatin -Monitor vital signs DM 2, uncontrolled -Diabetic diet -Hemoglobin A1c 7.9 -Continue insulin sliding scale, On Toujeo 60 units QHS. Non Formulary -Levemir 10units BID Gout -Continue allopurinol Restless leg syndrome -Continue ropinirole DVT prop eliquis To complete Bactrim. Stable from Hospitalist standpoint. We will sign off. Reconsult as needed. Thank you. Code Status: Full code Discussed Condition With: Patient, nursing Discharge Planning: DC disposition by primary team
--- NOTE | 2018-04-19 15:31 | P.PNPSY ---
Subjective Remarks: Patient seen for follow-up, chart reviewed. Discussion with nursing staff reported that patient no behavioral issues has been compliant with treatment and continues to require 2 person assist when requiring transferring to restroom. Patient continues to work with physical therapy and continues to require 2 person assist. Patient found lying hospital bed noted B, cooperative. Patient states she is feeling "fine" stating that she just wants to go home. She mentions being worried about her which she is attempting to use her bank card and having difficulty. She mentions wanting to be able to get up from bed and sit in a chair which a bariatric chair was requested yesterday. Patient denies any further auditory visual hallucinations. Denies any paranoid delusions here since admission and noted be organized relevant and coherent. Review of Systems All other systems reviewed negative except as stated in HPI Mental Status Examination Appearance: Appropriate Consciousness: Alert Orientation: x4 Motor Activity: Other (Lying on the bed) Speech: Unremarkable Language: Adequate Fund of Knowledge: Adequate Attention and Concentration: Adequate Memory: Unremarkable Mood: Anxious Affect: Anxious Thought Process & Associations: Intact, Linear Thought Content: Appropriate, Preoccupations (Wanting to go home) Hallucination Type: None Delusion Type: None Suicidal Ideation: No Suicidal Plan: No Suicidal Intention: No Homicidal Ideation: No Homicidal Plan: No Homicidal Intention: No Insight: Fair Judgment: Impulsive Assessment and Plan - Assessment (1) Unspecified psychosis Code(s): F29 - Unspecified psychosis not due to a substance or known physiological condition Status: Acute - Plan Plan: Patient currently denying any perceptional services denying any paranoid delusions since admission. Patient tolerated medications well. Patient continues to require referral to a [facility] facility for rehabilitation. Treatment team actively looking for a facility is willing to accept patient for transfer. We will continue recommendations per primary medical team, hospitalist input appreciated. Continue current treatment. Continue to monitor mood and behavior. Staff to assist patient reviewing her bank card and her belongings to be 020 make phone calls to her bank. Bariatric chair pending arrival to the unit. Justification for Continued Inpatient Stay: At risk of further decompensation at lower level care.
[2018-04-19] MEDS: Montelukast 10 MG Tablet PO SCH (17:08)
[2018-04-19] MEDS: Acetaminophen 325 MG Tablet PO PRN (17:09)
[2018-04-19] MEDS: QUEtiapine 100 MG Tablet PO SCH (20:32)
[2018-04-20] MEDS: Insulin NovoLOG Aspart Correctional Sugar Inj SQ SCH ×5 (03:05→20:30)
[2018-04-20] MEDS: Pantoprazole Sodium 20 MG DR Tablet PO SCH (08:01)
[2018-04-20] MEDS: Magnesium Oxide 400 MG Tablet PO SCH (08:01)
[2018-04-20] MEDS: Metoprolol Tartrate 100 MG Tablet PO SCH ×2 (08:01→20:29)
[2018-04-20] MEDS: Allopurinol 300 MG Tablet PO SCH (08:02)
[2018-04-20] MEDS: dilTIAZem 60 MG Tablet PO SCH ×3 (08:02→17:59)
[2018-04-20] MEDS: Furosemide 40 MG Tablet PO SCH (08:02)
[2018-04-20] MEDS: QUEtiapine 25 MG Tablet PO SCH (08:03)
[2018-04-20] MEDS: Senna/Docusate Sodium 8.6/50 MG Tablet PO SCH ×2 (08:03→20:29)
[2018-04-20] MEDS: Insulin Detemir Inj 1,000 UNIT/10 ML Vial SQ SCH ×2 (08:04→20:30)
--- NOTE | 2018-04-20 10:27 | P.PNPSY ---
Subjective Remarks: Patient seen for follow-up, chart reviewed. Discussion with nursing staff reported that patient was upset this morning about being served court papers since patient currently under involuntary hospitalization. Patient was found sitting up in hospital bed reading a book noted B, cooperative. Patient state states that she slept well last night, her mood has been "anxious" about where she is going to live upon discharge. She denies any perceptional services stating that she last recall having visual hallucination a snake when she was in the ER before transfer to the inpatient unit. She does report good mood denying any delusions at this time. Examination of patient's legal status was reviewed with patient and agreed to sign voluntary for this admission and to continue treatment and discharge planning which treatment team currently is searching for a [facility] facility which she requires upon discharge. Review of Systems All other systems reviewed negative except as stated in HPI Mental Status Examination Appearance: Appropriate Consciousness: Alert Orientation: x4 Motor Activity: Other (Lying on the bed) Speech: Unremarkable Language: Adequate Fund of Knowledge: Adequate Attention and Concentration: Adequate Memory: Unremarkable Mood: Anxious Affect: Anxious Thought Process & Associations: Intact, Linear Thought Content: Appropriate, Preoccupations (Regarding discharge) Hallucination Type: None Delusion Type: None Suicidal Ideation: No Suicidal Plan: No Suicidal Intention: No Homicidal Ideation: No Homicidal Plan: No Homicidal Intention: No Insight: Fair Judgment: Impulsive Assessment and Plan - Assessment (1) Unspecified psychosis Code(s): F29 - Unspecified psychosis not due to a substance or known physiological condition Status: Acute - Plan Plan: Patient this time and denying any psychotic symptoms denying any perceptional disturbances or delusions, tolerating medications well. Patient currently awaiting referral and acceptance to a [facility] facility when one is available. Patient will sign voluntary admission we will continue current treatment. We will continue to monitor mood and behavior. Discharge planning in progress. Justification for Continued Inpatient Stay: At risk of further decompensation at lower level care.
[2018-04-20] MEDS: Acetaminophen 325 MG Tablet PO PRN (13:11)
--- NOTE | 2018-04-20 15:10 | P.TTN ---
- Patient Problems Problems: 1. Discharge planning 2. Medication compliance 3. Knowledge deficit 4. Lack of coping skills - Progress Toward Goals Provider Present: Dr. Shiva Almendarez Provider Input: 04/18/2018; patient is stabilized on medical meds, and psychic medication Nurse(s) Present: RN Nurse Input: 04/18/2018; per RN patient is no behavior she is eating meals and taking medication, require assistance with his self-care, transferring and uses a wheelchair Psychiatric Counselors Present: Silvia Augustin [facility] Psychiatric Therapist Input: 04/18/2018; counselor will work with DC order planner with obtaining appropriate Skill nursing close to family Group Spec/RT/OT/HILL Present: Charlie Villanueva OT Group Spec/RT/OT/HILL Input: 04/18/2018; Per OT patient is not appropriate to participate with activities at this time due to physical limitation. - Documentation Teaching Recipient: Patient
[2018-04-20] MEDS: Montelukast 10 MG Tablet PO SCH (17:59)
[2018-04-20] MEDS: QUEtiapine 100 MG Tablet PO SCH (20:29)
[2018-04-21] MEDS: Insulin NovoLOG Aspart Correctional Sugar Inj SQ SCH ×5 (03:10→21:29)
[2018-04-21] MEDS: dilTIAZem 60 MG Tablet PO SCH ×3 (09:35→18:52)
[2018-04-21] MEDS: QUEtiapine 25 MG Tablet PO SCH (09:35)
[2018-04-21] MEDS: Senna/Docusate Sodium 8.6/50 MG Tablet PO SCH ×2 (09:35→21:29)
[2018-04-21] MEDS: Metoprolol Tartrate 100 MG Tablet PO SCH ×2 (09:36→21:29)
[2018-04-21] MEDS: Magnesium Oxide 400 MG Tablet PO SCH (09:36)
[2018-04-21] MEDS: Allopurinol 300 MG Tablet PO SCH (09:36)
[2018-04-21] MEDS: Furosemide 40 MG Tablet PO SCH (09:37)
[2018-04-21] MEDS: Pantoprazole Sodium 20 MG DR Tablet PO SCH (09:38)
[2018-04-21] MEDS: Acetaminophen 325 MG Tablet PO PRN (09:38)
[2018-04-21] MEDS: Insulin Detemir Inj 1,000 UNIT/10 ML Vial SQ SCH ×2 (09:47→21:30)
--- NOTE | 2018-04-21 17:28 | P.PNPSY ---
Subjective Remarks: Patient seen for follow-up, chart reviewed. Discussion with nursing staff reported that patient with no behavioral issues. Patient was found lying on hospital bed, noted to be calm and cooperative. Patient states that she has been trying to participate more in her ADLs with help from the staff. She states being hopeful in rehabilitation to one day be able to live independently again. She denies any perceptual disturbances or delusions. Review of Systems All other systems reviewed negative except as stated in HPI Mental Status Examination Appearance: Appropriate Consciousness: Alert Orientation: x4 Motor Activity: Other (Lying on the bed) Speech: Unremarkable Language: Adequate Fund of Knowledge: Adequate Attention and Concentration: Adequate Memory: Unremarkable Mood: Appropriate Affect: Appropriate Thought Process & Associations: Intact, Goal directed, Linear Thought Content: Appropriate, Preoccupations (Regarding discharge) Hallucination Type: None Delusion Type: None Suicidal Ideation: No Suicidal Plan: No Suicidal Intention: No Homicidal Ideation: No Homicidal Plan: No Homicidal Intention: No Insight: Fair Judgment: Impulsive Assessment and Plan - Assessment (1) Unspecified psychosis Code(s): F29 - Unspecified psychosis not due to a substance or known physiological condition Status: Acute - Plan Plan: Patient with stable mood, continues to deny any perceptual disturbances or delusions. Continue current treatment, continue to monitor mood and behavior. Discharge plannign in progress. Justification for Continued Inpatient Stay: At risk for further decompensation at lower level of care. Discharge Planning: Patient will be transferred to a rehabilitation program
[2018-04-21] MEDS: Montelukast 10 MG Tablet PO SCH (18:52)
[2018-04-21] MEDS: QUEtiapine 100 MG Tablet PO SCH (21:29)
[2018-04-22] MEDS: Insulin NovoLOG Aspart Correctional Sugar Inj SQ SCH ×5 (04:01→21:00)
[2018-04-22] MEDS: Acetaminophen 325 MG Tablet PO PRN (05:35)
[2018-04-22] MEDS: Furosemide 40 MG Tablet PO SCH (09:57)
[2018-04-22] MEDS: Senna/Docusate Sodium 8.6/50 MG Tablet PO SCH ×2 (09:57→21:00)
[2018-04-22] MEDS: Magnesium Oxide 400 MG Tablet PO SCH (09:58)
[2018-04-22] MEDS: Metoprolol Tartrate 100 MG Tablet PO SCH ×2 (09:58→21:43)
[2018-04-22] MEDS: Allopurinol 300 MG Tablet PO SCH (09:58)
[2018-04-22] MEDS: dilTIAZem 60 MG Tablet PO SCH ×3 (09:59→18:17)
[2018-04-22] MEDS: Pantoprazole Sodium 20 MG DR Tablet PO SCH (09:59)
[2018-04-22] MEDS: QUEtiapine 25 MG Tablet PO SCH (09:59)
[2018-04-22] MEDS: Insulin Detemir Inj 1,000 UNIT/10 ML Vial SQ SCH ×2 (10:00→21:00)
--- NOTE | 2018-04-22 15:26 | P.PNPSY ---
Subjective Remarks: Patient seen for follow-up, chart reviewed. Discussion with nursing staff reported that patient noted to be attempting to participate more and self-care but continues to have difficulty and requires assistance. Patient denies any SI or HI. Patient was found lying hospital bed noted be somewhat tearful today stating that she would just like to be able to be discharged and go home. Patient is aware that she requires further rehabilitation but also mentioned that she was having more shortness of breath during these past few days as she was trying to produce been more in her self-care and activity. She reports also having decreased appetite, sleeping well. Patient reports missing her dog. Review of Systems All other systems reviewed negative except as stated in HPI Mental Status Examination Appearance: Appropriate Consciousness: Alert Orientation: x4 Motor Activity: Other (Lying on the bed) Speech: Unremarkable Language: Adequate Fund of Knowledge: Adequate Attention and Concentration: Adequate Memory: Unremarkable Mood: Appropriate Affect: Appropriate Thought Process & Associations: Intact, Goal directed, Linear Thought Content: Appropriate, Preoccupations (Regarding discharge) Hallucination Type: None Delusion Type: None Suicidal Ideation: No Suicidal Plan: No Suicidal Intention: No Homicidal Ideation: No Homicidal Plan: No Homicidal Intention: No Insight: Fair Judgment: Impulsive Assessment and Plan - Assessment (1) Unspecified psychosis Code(s): F29 - Unspecified psychosis not due to a substance or known physiological condition Status: Acute - Plan Plan: Patient continues with compliance with treatment, noted to be somewhat tearful today as she reports missing her dog as well as going to be discharged home but aware that she requires further rehabilitation. We will continue current treatment. We will continue monitor mood and behavior. We will inquire with hospitalist for further evaluation of recent shortness of breath. Discharge planning in progress. Justification for Continued Inpatient Stay: At risk of further decompensation at lower level care.
--- NOTE | 2018-04-22 16:18 | P.PN ---
Subjective Interval history: Reconsult due to complaints of SOB, finger pain, and stomach rash. Patient is seen and examined resting in bed in no acute distress. 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 States she underwent testing and was told she did not have COPD but did have emphysema. She chronically uses oxygen at home. She has noticed that in the past 3 days she has had a productive cough with beige secretions, along with SOB. She also endorses chills and low grade tems, but states that she will frequently run low grad temps due to her Lupus. Complaints of bleeding under her stomach fold, denies any itching, pain or tenderness. Patient also has complaints of right hand third digit, states she has been told she has a trigger finger. Would like to know if she can have this evaluated. She denies any further complaints at this moment. Physical Exam Vital signs: Vital Signs 04/21/18 17:34 04/21/18 18:01 04/22/18 06:00 Temperature 97.7 F 99.2 F Pulse Rate 86 101 H Respiratory Rate 16 15 Blood Pressure 120/59 L 106/71 Pulse Oximetry 98 97 99 04/22/18 08:00 Temperature Pulse Rate Respiratory Rate Blood Pressure Pulse Oximetry 95 Intake & Output 04/21/18 04/22/18 04/22/18 18:59 06:59 18:59 Intake Total 240 / 240 840 / 840 120 / 120 Balance 240 / 240 840 / 840 120 / 120 Intake: Oral 240 / 240 840 / 840 120 / 120 Other: # Voids 3 Date of Last Bowel Movement 04/20/18 04/20/18 04/20/18 # Bowel Movements 1 Narrative: GENERAL: This is a morbidly obese patient, in no apparent distress. SKIN: Warm and dry. Erythema with moist maceration under pannus, no bleeding noted. HEENT: Normocephalic. Pupils equal round and reactive. Nose without bleeding. Airway patent. NECK: Trachea midline. CARDIOVASCULAR: Irregular rate and rhythm without murmurs, gallops, or rubs. RESPIRATORY: Clear to auscultation. Breath sounds equal bilaterally. No wheezes , rales, or rhonchi. GASTROINTESTINAL: Abdomen soft, non-tender, obese. Bowel Sounds normoactive x4. MUSCULOSKELETAL: Extremities without clubbing or cyanosis. Bilateral leg and feet trace edema. Right hand third digit delay in extension due to trigger finger, no edema or deformity noted. + sensation, mobility, capillary refill < 3seconds. NEUROLOGICAL: Awake and alert. Oriented to place, person.Moves all extremities, bilateral lower extremity weakness. Normal speech. - Urinary Catheter Management Indwelling Urethral Catheter Cath placed during this visit: yes, but has since been removed by the nurse Reason for continuing: Decision to DC catheter Insertion date: 04/16/18 Insertion time: 12:00 Removal date: 04/18/18 Removal time: 10:50 Results - Labs CBC & Chem 7: 04/22/18 16:57 04/17/18 07:31 Laboratory Results - last 24 hr 04/21/18 04/21/18 04/22/18 16:38 19:56 03:36 POC Glucose 128 H 191 H 112 H 04/22/18 04/22/18 05:41 11:42 POC Glucose 102 127 H Assessment and Plan - Plan Patient is a 62-year-old female with past medical history of atrial fibrillation , congestive heart failure, degenerative disc disease, gout, lupus, COPD O2 dependent who initially came to the hospital [facility]PAR[facility] by daughter for psychotic behavior. admitted to medical psychiatry unit for further evaluation. H reconsulted due to SOB, rash and finger pain. Hallucinations, psychosis -Managed by psychiatry team Atrial fibrillation, chronic HTN HLD -Continue aspirin, Cardizem 60 mg 3 times daily, Eliquis 5 mg twice daily, metoprolol 100 mg twice daily, Lasix 40 mg daily -Continue pravastatin -Monitor vital signs DM 2, uncontrolled -Diabetic diet -Hemoglobin A1c 7.9 -Continue insulin sliding scale, On Toujeo 60 units QHS. Non Formulary -Levemir 10units BID - BS stable Cough Hx emphysema ? COPD - + productive cough, SOB and low grade temp.,O2 sats stable - Continue NC to keep sats >90%, encourage OOB and IS - CBC with no leukocytosis - Chest x-ray with sable enlargement of cardiomediastinal silhouette, new opacifications on left lung base possibly representing combination of airspace disease and pleural fluid. New mild blunting of right lateral costophrenic angles suggesting trace pleural effusion. - procalcitonin pending, check BNP - Additional dose of p.o Lasix today - Ipratropium Q6hrs (patient told no albuterol as this will make a.fib worse) - Mucinex BID Skin cherelle - Nystatin powder, patient encouraged to keep area clean and dry. Right hand trigger finger - Chronic and ongoing per patient, conservative treatment - PRN Tylenol, splinting if needed, will need to follow up as out patient for possible steroid injections. DVT alma cheng Discussed Condition With: Patient and RN
--- NOTE | 2018-04-22 16:45 | XR ---
EXAM DATE: 04/22/2018 4:40 PM EST AGE/SEX: 62 years / Female INDICATIONS: Shortness of breath and chest pain, bilaterally. CLINICAL DATA: This is the patient's initial encounter. Patient reports that signs and symptoms have been present for 3 days and indicates a pain score of 4/10. MEDICAL/SURGICAL HISTORY: Congestive heart failure. Asthma. Atrial fibrillation. None. COMPARISON: [facility], CHEST SINGLE AP, 10/19/2017. . FINDINGS: A single AP view of the chest demonstrates stable marked enlargement of the cardiomediastinal silhoue tte. New ill-defined opacification of the left lung base with silhouetting of the left hemidiaphragm. Mild blunting of the right lateral costophrenic angle. Hypertrophic changes of the spine. CONCLUSION: 1. Stable marked enlargement of the cardiomediastinal silhouette. 2. New opacification of the left lung base with silhouetting of the left hemidiaphragm, which may re present a combination of airspace disease and pleural fluid. 3. New mild blunting of the right lateral costophrenic angle suggests a trace right pleural effusion . Electronically signed by: Rubia Peck MD 04/22/2018 4:44 PM EST
[2018-04-22 17:12] LABS: Baso % (Auto) 0.6 % (0.0-2.0); Eos # (Auto) 0.2 th/mm3 (0.0-0.4); Eos % (Auto) 2.3 % (0.0-4.0); Hematocrit 31.7 % (35.0-46.0); Hemoglobin 10.4 gm/dL (11.6-15.3); Lymph # (Auto) 1.3 th/mm3 (1.0-4.8); Lymph % (Auto) 19.2 % (9.0-44.0); Mean Corpuscular HGB Conc 32.7 % (32.0-36.0); Mean Corpuscular Hemoglobin 27.1 pg (27.0-34.0); Mean Platelet Volume 9.7 fL (7.0-11.0); Mono # (Auto) 0.3 th/mm3 (0.0-0.9); Neut % (Auto) 73.9 % (16.0-70.0); Platelet Count 106 th/mm3 (150-450); Red Blood Count 3.82 mil/mm3 (4.00-5.30); Red Cell Distribution Width 20.9 % (11.6-17.2); White Blood Count 6.8 th/mm3 (4.0-11.0)
[2018-04-22 17:21] LABS: Calcium 8.1 mg/dL (8.5-10.1); Carbon Dioxide 31.5 meq/L (21.0-32.0); Potassium 4.7 meq/L (3.5-5.1)
[2018-04-22] MEDS: Montelukast 10 MG Tablet PO SCH (18:19)
[2018-04-22] MEDS ORDERED: Furosemide 40 MG Tablet PO ONE (19:00)
[2018-04-22] MEDS: Nystatin 100,000 UNITS/GM Powder 15 GM Bottle TOPICAL SCH (21:00)
[2018-04-22] MEDS: QUEtiapine 100 MG Tablet PO SCH (21:00)
[2018-04-22] MEDS: guaiFENesin 600 MG ER Tablet PO SCH (21:00)
[2018-04-23] MEDS: Insulin NovoLOG Aspart Correctional Sugar Inj SQ SCH ×5 (05:09→21:54)
--- NOTE | 2018-04-23 08:09 | P.PN ---
Subjective Interval history: Follow-up visit for shortness of breath. Patient seen and examined sitting up in bed this morning in no acute distress. She reports being uncomfortable overnight as she was urinating frequently due to dose of Lasix. Is requesting dose of Lasix be given earlier in the day. Patient states that her breathing is better this morning however still coughing up thick secretions. Denies any shortness of breath at the moment, no fevers, chills, nausea, vomiting or diarrhea. She voices no other acute concerns at the moment. Physical Exam Vital signs: Vital Signs 04/22/18 17:52 04/22/18 20:04 04/23/18 05:51 Temperature 98.2 F 97.6 F Pulse Rate 99 H 99 H 92 H Respiratory Rate 18 18 16 Blood Pressure 126/60 115/50 L Pulse Oximetry 92 L 95 98 04/23/18 07:00 04/23/18 08:00 Temperature Pulse Rate 72 Respiratory Rate 16 Blood Pressure Pulse Oximetry 97 Intake & Output 04/22/18 04/23/18 04/23/18 18:59 06:59 18:59 Intake Total 120 / 120 360 / 360 Balance 120 / 120 360 / 360 Intake: Oral 120 / 120 360 / 360 Other: # Voids 2 Date of Last Bowel Movement 04/20/18 Narrative: GENERAL: This is a morbidly obese patient, in no apparent distress. SKIN: Warm and dry. Erythema under pannus, mild. HEENT: Normocephalic. Pupils equal round and reactive. Nose without bleeding. Airway patent. NECK: Trachea midline. CARDIOVASCULAR: Irregular rate and rhythm without murmurs, gallops, or rubs. RESPIRATORY: Clear to auscultation. Breath sounds equal bilaterally. No wheezes , rales, or rhonchi. GASTROINTESTINAL: Abdomen soft, non-tender, obese. Bowel Sounds normoactive x4. MUSCULOSKELETAL: Extremities without clubbing or cyanosis. Bilateral leg and feet trace edema. NEUROLOGICAL: Awake and alert. Oriented to place, person.Moves all extremities, bilateral lower extremity weakness. Normal speech. - Urinary Catheter Management Indwelling Urethral Catheter Cath placed during this visit: yes, but has since been removed by the nurse Reason for continuing: Decision to DC catheter Insertion date: 04/16/18 Insertion time: 12:00 Removal date: 04/18/18 Removal time: 10:50 Results - Labs CBC & Chem 7: 04/22/18 16:57 04/23/18 07:37 Laboratory Results - last 24 hr 04/22/18 04/22/18 04/22/18 11:42 16:57 16:57 WBC 6.8 RBC 3.82 L Hgb 10.4 L Hct 31.7 L MCV 83.0 MCH 27.1 MCHC 32.7 RDW 20.9 H Plt Count 106 L MPV 9.7 Neut % (Auto) 73.9 H Lymph % (Auto) 19.2 [place] % (Auto) 4.0 Eos % (Auto) 2.3 Baso % (Auto) 0.6 Neut # (Auto) 5.0 Lymph # (Auto) 1.3 [place] # (Auto) 0.3 Eos # (Auto) 0.2 Baso # (Auto) 0.0 WBC Differential . Differential Comment Auto diff final Sodium 139 Potassium 4.7 Chloride 100 Carbon Dioxide 31.5 Anion Gap 8 BUN 22 H Creatinine 1.40 H Estimated GFR 38 L POC Glucose 127 H Random Glucose 146 H Calcium 8.1 L B-Natriuretic Peptide Procalcitonin 04/22/18 04/22/18 04/22/18 16:57 16:57 20:35 WBC RBC Hgb Hct MCV MCH MCHC RDW Plt Count MPV Neut % (Auto) Lymph % (Auto) [place] % (Auto) Eos % (Auto) Baso % (Auto) Neut # (Auto) Lymph # (Auto) [place] # (Auto) Eos # (Auto) Baso # (Auto) WBC Differential Differential Comment Sodium Potassium Chloride Carbon Dioxide Anion Gap BUN Creatinine Estimated GFR POC Glucose 169 H Random Glucose Calcium B-Natriuretic Peptide 844 H Procalcitonin 0.06 04/23/18 04/23/18 05:08 06:40 WBC RBC Hgb Hct MCV MCH MCHC RDW Plt Count MPV Neut % (Auto) Lymph % (Auto) [place] % (Auto) Eos % (Auto) Baso % (Auto) Neut # (Auto) Lymph # (Auto) [place] # (Auto) Eos # (Auto) Baso # (Auto) WBC Differential Differential Comment Sodium Potassium Chloride Carbon Dioxide Anion Gap BUN Creatinine Estimated GFR POC Glucose 122 H 113 H Random Glucose Calcium B-Natriuretic Peptide Procalcitonin - Imaging Impressions Chest X-Ray 04/22/18 00:00 CONCLUSION: 1. Stable marked enlargement of the cardiomediastinal silhouette. 2. New opacification of the left lung base with silhouetting of the left hemidiaphragm, which may represent a combination of airspace disease and pleural fluid. 3. New mild blunting of the right lateral costophrenic angle suggests a trace right pleural effusion. Assessment and Plan - Plan Patient is a 62-year-old female with past medical history of atrial fibrillation , congestive heart failure, degenerative disc disease, gout, lupus, COPD O2 dependent who initially came to the hospital [facility] by daughter for psychotic behavior. admitted to medical psychiatry unit for further evaluation. H reconsulted due to SOB, rash and finger pain. Hallucinations, psychosis -Managed by psychiatry team Atrial fibrillation, chronic HTN HLD -Continue aspirin, Cardizem 60 mg 3 times daily, Eliquis 5 mg twice daily, metoprolol 100 mg twice daily, Lasix 40 mg daily -Continue pravastatin -Monitor vital signs DM 2, uncontrolled -Diabetic diet -Hemoglobin A1c 7.9 -Continue insulin sliding scale, On Toujeo 60 units QHS. Non Formulary -Levemir 10units BID - BS stable Cough Hx emphysema ? COPD - + productive cough, continue Mucinex, ipratropium - Continue NC to keep sats >90%, encourage OOB and IS - CBC with no leukocytosis - Chest x-ray with sable enlargement of cardiomediastinal silhouette, new opacifications on left lung base possibly representing combination of airspace disease and pleural fluid. New mild blunting of right lateral costophrenic angles suggesting trace pleural effusion. -Pro calcitonin within normal limits, afebrile, improvement in respiratory status with additional dose of Lasix. CHF, mild exacerbation - BNP 844, will continue with extra dose of 20 mg of Lasix earlier in the afternoon - SOB has improved, continue to monitor Skin cherelle -Continue nystatin powder, keep area clean and dry. Right hand trigger finger - Chronic and ongoing per patient, conservative treatment - PRN Tylenol, splinting if needed, will need to follow up as out patient for possible steroid injections. JUSTO with possible CKD -Patient reports she frequently has laboratory monitoring of her kidneys, does not see a visitor services coordinator. -Creatinine 1.4---> 1.24, continue to monitor renal function. -Avoid nephrotoxins DVT prop skylar Discussed Condition With: Patient and RN
[2018-04-23] MEDS: Furosemide 40 MG Tablet PO SCH (08:14)
[2018-04-23] MEDS: Magnesium Oxide 400 MG Tablet PO SCH (08:14)
[2018-04-23] MEDS: dilTIAZem 60 MG Tablet PO SCH ×3 (08:14→17:42)
[2018-04-23] MEDS: guaiFENesin 600 MG ER Tablet PO SCH ×2 (08:14→21:46)
[2018-04-23] MEDS: Allopurinol 300 MG Tablet PO SCH (08:14)
[2018-04-23] MEDS: Senna/Docusate Sodium 8.6/50 MG Tablet PO SCH ×3 (08:15→21:56)
[2018-04-23] MEDS: QUEtiapine 25 MG Tablet PO SCH (08:15)
[2018-04-23] MEDS: Pantoprazole Sodium 20 MG DR Tablet PO SCH (08:15)
[2018-04-23] MEDS: Nystatin 100,000 UNITS/GM Powder 15 GM Bottle TOPICAL SCH ×2 (08:15→21:00)
[2018-04-23] MEDS: Metoprolol Tartrate 100 MG Tablet PO SCH ×2 (08:15→21:46)
[2018-04-23] MEDS: Insulin Detemir Inj 1,000 UNIT/10 ML Vial SQ SCH ×2 (08:16→21:54)
[2018-04-23 08:38] LABS: Calcium 8.2 mg/dL (8.5-10.1); Carbon Dioxide 30.3 meq/L (21.0-32.0); Potassium 4.3 meq/L (3.5-5.1)
[2018-04-23] MEDS ORDERED: Furosemide 20 MG Tablet PO SCH (15:00)
--- NOTE | 2018-04-23 17:03 | P.PNPSY ---
Subjective Remarks: Pt seen and discussed with staff. She was admitted on an exparte due to psychosis and self neglect. She has cooperative with care and medications. She has been more engaged with therapy and slowly increasing physical activity. No hallucinations or suicidal ideations. Mental Status Examination Appearance: Appropriate Consciousness: Alert Orientation: x4 Motor Activity: Other (Lying on the bed) Speech: Unremarkable Language: Adequate Fund of Knowledge: Adequate Attention and Concentration: Adequate Memory: Unremarkable Mood: Sad Affect: Sad Thought Process & Associations: Intact, Goal directed, Linear Thought Content: Appropriate, Preoccupations (Regarding discharge) Hallucination Type: None Delusion Type: None Suicidal Ideation: No Suicidal Plan: No Suicidal Intention: No Homicidal Ideation: No Homicidal Plan: No Homicidal Intention: No Insight: Fair Judgment: Impulsive Assessment and Plan - Assessment (1) Unspecified psychosis Code(s): F29 - Unspecified psychosis not due to a substance or known physiological condition Status: Acute - Plan Plan: Continue current tx plan Justification for Continued Inpatient Stay: impairments in self care
[2018-04-23] MEDS: Montelukast 10 MG Tablet PO SCH (17:44)
[2018-04-23] MEDS: QUEtiapine 100 MG Tablet PO SCH (21:46)
[2018-04-24] MEDS: Insulin NovoLOG Aspart Correctional Sugar Inj SQ SCH ×5 (03:05→20:57)
[2018-04-24] MEDS: Acetaminophen 325 MG Tablet PO PRN (03:22)
--- NOTE | 2018-04-24 08:28 | P.PN ---
Subjective Interval history: Follow-up for SOB/cough, fluid overload, and afib. Nurse does not report any acute events overnight or this morning, nose bleed reported by RN, but nothing perfuse. Yeast erythema under breast and pannus noted by RN. Patient is seen and examined sitting up in bed this morning preparing to eat breakfast. She reports that her cough has improved significantly as well as cough. Denies any fevers, chill, N/V/D. She is concerned regarding her bleeding, states that yesterday her nose bleed. She is concerned that her Eliquis dose is too high. She goes on to tell me that when she was being seen by care doctors at home and her dialysis rn there were points where her Eliquis dose was reduced to 2.5mg as it was "too much" for her. She states her magnesium and potassium would go low. I had an extensive conversation with patient regarding the indications and doses for Eliquis based on shoe ironer recommendations. I do not see any life threatening bleeding and patient has been hemodynamically stable. Will dose her Eliquis to 5mg BID per recommendations for stroke prophylaxis. Discussed with patient that if bleeding does occur then we can reassess. Physical Exam Vital signs: Vital Signs 04/23/18 11:00 04/23/18 13:12 04/23/18 16:18 Temperature 98.7 F Pulse Rate 76 84 Respiratory Rate 20 17 Blood Pressure 116/54 L Pulse Oximetry 97 98 04/23/18 19:52 04/24/18 05:59 Temperature 97.7 F Pulse Rate 84 87 Respiratory Rate 17 16 Blood Pressure 115/78 Pulse Oximetry 96 93 L Intake & Output 04/23/18 04/24/18 04/24/18 18:59 06:59 18:59 Intake Total 1200 / 1200 480 / 480 Balance 1200 / 1200 480 / 480 Intake: Oral 1200 / 1200 480 / 480 Other: # Voids 2 # Bowel Movements 1 Narrative: GENERAL: This is a morbidly obese patient, in no apparent distress. SKIN: Warm and dry. Erythema under pannus and breast folds, mild with no bleeding noted. HEENT: Normocephalic. Pupils equal round and reactive. Nose without bleeding. Airway patent. NECK: Trachea midline. CARDIOVASCULAR: Irregular rate and rhythm without murmurs, gallops, or rubs. RESPIRATORY: Clear to auscultation. Breath sounds equal bilaterally. No wheezes , rales, or rhonchi. GASTROINTESTINAL: Abdomen soft, non-tender, obese. Bowel Sounds normoactive x4. MUSCULOSKELETAL: Extremities without clubbing or cyanosis. Bilateral leg and feet trace edema. NEUROLOGICAL: Awake and alert. Oriented to place, person.Moves all extremities, bilateral lower extremity weakness. Normal speech. - Urinary Catheter Management Indwelling Urethral Catheter Cath placed during this visit: yes, but has since been removed by the nurse Reason for continuing: Decision to DC catheter Insertion date: 04/16/18 Insertion time: 12:00 Removal date: 04/18/18 Removal time: 10:50 Results - Labs CBC & Chem 7: 04/22/18 16:57 04/23/18 07:37 Laboratory Results - last 24 hr 04/23/18 04/23/18 04/23/18 07:37 11:12 16:16 Sodium 140 Potassium 4.3 Chloride 102 Carbon Dioxide 30.3 Anion Gap 8 BUN 23 H Creatinine 1.24 H Estimated GFR 44 L POC Glucose 137 H 120 H Random Glucose 104 Calcium 8.2 L 04/23/18 04/24/18 04/24/18 20:37 03:13 06:43 Sodium Potassium Chloride Carbon Dioxide Anion Gap BUN Creatinine Estimated GFR POC Glucose 194 H 125 H 118 H Random Glucose Calcium Assessment and Plan - Plan Patient is a 62-year-old female with past medical history of atrial fibrillation , congestive heart failure, degenerative disc disease, gout, lupus, COPD O2 dependent who initially came to the hospital [facility] by daughter for psychotic behavior. admitted to medical psychiatry unit for further evaluation. [facility] reconsulted due to SOB, rash and finger pain. Hallucinations, psychosis -Managed by psychiatry team Atrial fibrillation, chronic HTN HLD -Continue aspirin, Cardizem 60 mg 3 times daily, Eliquis 5 mg twice daily, metoprolol 100 mg twice daily, Lasix 40 mg daily - Extensive discussion regarding dosing of Eliquis, no dose adjustment required, no active bleeding noted. -Continue pravastatin -Monitor vital signs DM 2, uncontrolled -Diabetic diet -Hemoglobin A1c 7.9 -Continue insulin sliding scale, On Toujeo 60 units QHS. Non Formulary -Levemir 10units BID - BS stable Cough Hx emphysema ? COPD - + productive cough, continue Mucinex, ipratropium - Continue NC to keep sats >90%, encourage OOB and IS - CBC with no leukocytosis - Chest x-ray with sable enlargement of cardiomediastinal silhouette, new opacifications on left lung base possibly representing combination of airspace disease and pleural fluid. New mild blunting of right lateral costophrenic angles suggesting trace pleural effusion. -Pro calcitonin within normal limits, afebrile, improvement in respiratory status with additional dose of Lasix. CHF, mild exacerbation - BNP 844, will continue with extra dose of 20 mg of Lasix - SOB has improved, continue to monitor Skin cherelle -Continue nystatin powder, keep area clean and dry. Right hand trigger finger - Chronic and ongoing per patient, conservative treatment - PRN Tylenol, splinting if needed, will need to follow up as out patient for possible steroid injections. JUSTO with possible CKD -Patient reports she frequently has laboratory monitoring of her kidneys, does not see a scoop machine operator. -Creatinine 1.4---> 1.24, continue to monitor renal function. -Avoid nephrotoxins DVT alma cheng Discussed Condition With: Patient and RN
[2018-04-24] MEDS: Insulin Detemir Inj 1,000 UNIT/10 ML Vial SQ SCH ×2 (08:37→21:29)
[2018-04-24] MEDS: Nystatin 100,000 UNITS/GM Powder 15 GM Bottle TOPICAL SCH ×2 (08:37→21:30)
[2018-04-24] MEDS: Allopurinol 300 MG Tablet PO SCH (08:37)
[2018-04-24] MEDS: Furosemide 40 MG Tablet PO SCH (08:38)
[2018-04-24] MEDS: dilTIAZem 60 MG Tablet PO SCH ×3 (08:38→17:50)
[2018-04-24] MEDS: Pantoprazole Sodium 20 MG DR Tablet PO SCH (08:38)
[2018-04-24] MEDS: QUEtiapine 25 MG Tablet PO SCH (08:38)
[2018-04-24] MEDS: Metoprolol Tartrate 100 MG Tablet PO SCH ×2 (08:38→20:57)
[2018-04-24] MEDS: guaiFENesin 600 MG ER Tablet PO SCH ×2 (08:38→20:57)
[2018-04-24] MEDS: Magnesium Oxide 400 MG Tablet PO SCH (08:38)
[2018-04-24] MEDS: Senna/Docusate Sodium 8.6/50 MG Tablet PO SCH ×2 (08:39→20:56)
[2018-04-24] MEDS: Montelukast 10 MG Tablet PO SCH (17:50)
--- NOTE | 2018-04-24 18:19 | P.PNPSY ---
Subjective Remarks: Pt seen and discussed with staff. Pt has been intermittently weepy and emotional today. Staff report that pt is focused on discharge and states that her needs her to care for him. She has been doing more self care today and has been cooperative with medications. She has been irritable and illogical about ability to care for self. She states that she cannot go out of room to the dayroom because of SOB but insists that she is able to care for not only herself but also her . No HI/SI Mental Status Examination Appearance: Appropriate Consciousness: Alert Orientation: x4 Motor Activity: Other (Lying on the bed) Speech: Unremarkable Language: Adequate Fund of Knowledge: Adequate Attention and Concentration: Adequate Memory: Unremarkable Mood: Sad Affect: Sad Thought Process & Associations: Intact, Goal directed, Linear Thought Content: Appropriate, Preoccupations (Regarding discharge) Hallucination Type: None Delusion Type: None Suicidal Ideation: No Suicidal Plan: No Suicidal Intention: No Homicidal Ideation: No Homicidal Plan: No Homicidal Intention: No Insight: Fair Judgment: Impulsive Assessment and Plan - Assessment (1) Unspecified psychosis Code(s): F29 - Unspecified psychosis not due to a substance or known physiological condition Status: Acute - Plan Plan: Continue current tx plan Justification for Continued Inpatient Stay: risk of decompensation
[2018-04-24] MEDS: QUEtiapine 100 MG Tablet PO SCH (21:31)
[2018-04-25] MEDS: Insulin NovoLOG Aspart Correctional Sugar Inj SQ SCH ×5 (03:00→21:56)
[2018-04-25 08:01] LABS: Calcium 8.6 mg/dL (8.5-10.1); Carbon Dioxide 33.4 meq/L (21.0-32.0); Potassium 3.9 meq/L (3.5-5.1)
[2018-04-25] MEDS ORDERED: Sodium Chloride 0.65% Nasal Spray 45 ML Bottle EACH NARE PRN (08:18)
--- NOTE | 2018-04-25 09:02 | P.PN ---
Subjective Interval history: Follow-up visit for SOB and cough. Patient seen and examined resign in bed in no acute distress, she reports the bleeding under her stomach has decreased. She denies any further noes bleeding, but burns complain of a dry nose. Denies SOB , no further cough noted. Nurse does not report any acute concerns or events. Physical Exam Vital signs: Vital Signs 04/24/18 09:10 04/24/18 13:16 04/24/18 14:35 Temperature 98.3 F Pulse Rate 101 H 92 H Respiratory Rate 19 16 Blood Pressure Pulse Oximetry 94 L 98 98 04/24/18 19:31 04/25/18 05:09 04/25/18 08:17 Temperature 97.6 F Pulse Rate 92 H 83 51 L Respiratory Rate 16 17 18 Blood Pressure 120/64 Pulse Oximetry 96 96 95 Intake & Output 04/24/18 04/25/18 04/25/18 18:59 06:59 18:59 Intake Total 1440 / 1440 480 / 480 480 / 480 Output Total 2 / 2 Balance 1440 / 1440 478 / 478 480 / 480 Weight 148.2 kg Intake: Oral 1440 / 1440 480 / 480 480 / 480 Output: Urine 2 / 2 Other: # Voids 7 # Bowel Movements 2 Narrative: GENERAL: This is a morbidly obese patient, in no apparent distress. SKIN: Warm and dry. HEENT: Normocephalic. Pupils equal round and reactive. Nose without bleeding. Airway patent. NECK: Trachea midline. CARDIOVASCULAR: Irregular rate and rhythm without murmurs, gallops, or rubs. RESPIRATORY: Clear to auscultation. Breath sounds equal bilaterally. No wheezes , rales, or rhonchi. GASTROINTESTINAL: Abdomen soft, non-tender, obese. Bowel Sounds normoactive x4. MUSCULOSKELETAL: Extremities without clubbing or cyanosis. Bilateral leg and feet trace edema. NEUROLOGICAL: Awake and alert. Moves all extremities, bilateral lower extremity weakness. Normal speech. - Urinary Catheter Management Indwelling Urethral Catheter Cath placed during this visit: yes, but has since been removed by the nurse Reason for continuing: Decision to DC catheter Insertion date: 04/16/18 Insertion time: 12:00 Removal date: 04/18/18 Removal time: 10:50 Results - Labs CBC & Chem 7: 04/22/18 16:57 04/25/18 06:27 Laboratory Results - last 24 hr 04/24/18 04/24/18 04/24/18 11:00 16:05 20:18 Sodium Potassium Chloride Carbon Dioxide Anion Gap BUN Creatinine Estimated GFR POC Glucose 127 H 144 H 179 H Random Glucose Calcium 04/25/18 04/25/18 04/25/18 03:49 06:27 06:40 Sodium 141 Potassium 3.9 Chloride 102 Carbon Dioxide 33.4 H Anion Gap 6 BUN 22 H Creatinine 1.18 H Estimated GFR 46 L POC Glucose 117 H 92 Random Glucose 73 L Calcium 8.6 Assessment and Plan - Plan Patient is a 62-year-old female with past medical history of atrial fibrillation , congestive heart failure, degenerative disc disease, gout, lupus, COPD O2 dependent who initially came to the hospital [facility] by daughter for psychotic behavior. admitted to medical psychiatry unit for further evaluation. H reconsulted due to SOB, rash and finger pain. Hallucinations, psychosis -Managed by psychiatry team Atrial fibrillation, chronic HTN HLD -Continue aspirin, Cardizem 60 mg 3 times daily, Eliquis 5 mg twice daily, metoprolol 100 mg twice daily, Lasix 40 mg daily -Continue pravastatin -Monitor vital signs DM 2, uncontrolled -Diabetic diet -Hemoglobin A1c 7.9 -Continue insulin sliding scale, On Toujeo 60 units QHS. Non Formulary -Levemir 10units BID - BS stable Cough Hx emphysema ? COPD - + productive cough, continue Mucinex, ipratropium - Continue NC to keep sats >90%, encourage OOB and IS - CBC with no leukocytosis - Chest x-ray with sable enlargement of cardiomediastinal silhouette, new opacifications on left lung base possibly representing combination of airspace disease and pleural fluid. New mild blunting of right lateral costophrenic angles suggesting trace pleural effusion. -Pro calcitonin within normal limits, afebrile, improvement in respiratory status with additional dose of Lasix. CHF, mild exacerbation - BNP 844, will continue with extra dose of 20 mg of Lasix - SOB has improved, continue to monitor Skin cherelle -Continue nystatin powder, keep area clean and dry. Right hand trigger finger - Chronic and ongoing per patient, conservative treatment - PRN Tylenol, splinting if needed, will need to follow up as out patient for possible steroid injections. JUSTO with possible CKD -Patient reports she frequently has laboratory monitoring of her kidneys, does not see a two way radio technician. -Creatinine 1.4---> 1.24-->1.18, continue to monitor renal function. -Avoid nephrotoxins DVT prop skylar Discussed Condition With: Patient and RN
[2018-04-25] MEDS: Allopurinol 300 MG Tablet PO SCH (09:49)
[2018-04-25] MEDS: Metoprolol Tartrate 100 MG Tablet PO SCH ×2 (09:49→21:56)
[2018-04-25] MEDS: guaiFENesin 600 MG ER Tablet PO SCH ×2 (09:49→21:56)
[2018-04-25] MEDS: Furosemide 40 MG Tablet PO SCH (09:51)
[2018-04-25] MEDS: Magnesium Oxide 400 MG Tablet PO SCH (09:51)
[2018-04-25] MEDS: Senna/Docusate Sodium 8.6/50 MG Tablet PO SCH ×2 (09:52→21:57)
[2018-04-25] MEDS: dilTIAZem 60 MG Tablet PO SCH ×3 (09:52→17:24)
[2018-04-25] MEDS: Pantoprazole Sodium 20 MG DR Tablet PO SCH (09:52)
[2018-04-25] MEDS: Nystatin 100,000 UNITS/GM Powder 15 GM Bottle TOPICAL SCH ×2 (09:54→21:56)
[2018-04-25] MEDS: QUEtiapine 25 MG Tablet PO SCH (09:54)
[2018-04-25] MEDS: Insulin Detemir Inj 1,000 UNIT/10 ML Vial SQ SCH ×2 (09:55→21:56)
[2018-04-25] MEDS: Montelukast 10 MG Tablet PO SCH (17:24)
--- NOTE | 2018-04-25 18:15 | P.PNPSY ---
Subjective Remarks: Patient seen for follow-up, chart reviewed. Discussion with nursing staff reported that patient compliant with treatment, noted to be asking about discharge. Patient was found sitting up on hospital bed, noted to be calm and cooperative. Patient states that the weekend was terrible due to her wanting to go back to the [facility] with her and currently states worrying about him. She states sleeping well, participating more in her own ADLs, such as walking self to the bathroom and dressing herself. Denies any SI, HI, AVH or delusions. Review of Systems All other systems reviewed negative except as stated in HPI Mental Status Examination Appearance: Appropriate Consciousness: Alert Orientation: x4 Motor Activity: Other (Lying on the bed) Speech: Unremarkable Language: Adequate Fund of Knowledge: Adequate Attention and Concentration: Adequate Memory: Unremarkable Mood: Appropriate Affect: Appropriate Thought Process & Associations: Intact, Goal directed, Linear Thought Content: Appropriate, Preoccupations (Regarding discharge) Hallucination Type: None Delusion Type: None Suicidal Ideation: No Suicidal Plan: No Suicidal Intention: No Homicidal Ideation: No Homicidal Plan: No Homicidal Intention: No Insight: Fair Judgment: Impulsive Assessment and Plan - Assessment (1) Unspecified psychosis Code(s): F29 - Unspecified psychosis not due to a substance or known physiological condition Status: Acute - Plan Plan: Patient noted to be more active with ADLs, working well with physical therapy and with assistance of nurses. Patient with stable mood, no perceptual disturbances or delusions. Continue current treatment. Patient likely for discharge tomorrow back to [facility] with home health services. Discharge planning in progress. Justification for Continued Inpatient Stay: At risk for further decompensation at lower level of care.
[2018-04-25] MEDS: QUEtiapine 100 MG Tablet PO SCH (21:57)
--- NOTE | 2018-04-26 08:37 | P.PN ---
Subjective Interval history: Follow-up visit for diabetes mellitus, CHF, atrial fib. Nurse does not report any acute events overnight or this morning, plans for discharge today. Patient seen and examined sitting up in chair eating breakfast this morning in no acute distress. Denies any shortness of breath or further cough. No reports of bleeding. She voices no other acute concerns or complaints at the moment. Physical Exam Vital signs: Vital Signs 04/25/18 13:15 04/25/18 17:58 04/25/18 20:27 Temperature 98.7 F Pulse Rate 90 81 80 Respiratory Rate 18 Blood Pressure 101/61 Pulse Oximetry 96 98 04/26/18 05:02 Temperature 97.4 F L Pulse Rate 84 Respiratory Rate Blood Pressure 130/64 Pulse Oximetry 98 Intake & Output 04/25/18 04/26/18 04/26/18 18:59 06:59 18:59 Intake Total 1680 / 1680 580 / 580 Balance 1680 / 1680 580 / 580 Intake: Oral 1680 / 1680 580 / 580 Other: # Voids 3 Narrative: GENERAL: This is a morbidly obese patient, in no apparent distress. SKIN: Warm and dry. HEENT: Normocephalic. Pupils equal round and reactive. Nose without bleeding. Airway patent. NECK: Trachea midline. CARDIOVASCULAR: Irregular rate and rhythm without murmurs, gallops, or rubs. RESPIRATORY: Clear to auscultation. Breath sounds equal bilaterally. No wheezes , rales, or rhonchi. GASTROINTESTINAL: Abdomen soft, non-tender, obese. Bowel Sounds normoactive x4. MUSCULOSKELETAL: Extremities without clubbing or cyanosis. Bilateral leg and feet trace edema. NEUROLOGICAL: Awake and alert. Moves all extremities, bilateral lower extremity weakness. Normal speech. - Urinary Catheter Management Indwelling Urethral Catheter Cath placed during this visit: yes, but has since been removed by the nurse Reason for continuing: Decision to DC catheter Insertion date: 04/16/18 Insertion time: 12:00 Removal date: 04/18/18 Removal time: 10:50 Results - Labs CBC & Chem 7: 04/22/18 16:57 04/25/18 06:27 Laboratory Results - last 24 hr 04/25/18 04/25/18 04/25/18 11:45 16:34 20:36 POC Glucose 148 H 123 H 182 H 04/26/18 04/26/18 05:33 08:31 POC Glucose 121 H 154 H Assessment and Plan - Plan Patient is a 62-year-old female with past medical history of atrial fibrillation , congestive heart failure, degenerative disc disease, gout, lupus, COPD O2 dependent who initially came to the hospital EXPARTE by daughter for psychotic behavior. admitted to medical psychiatry unit for further evaluation. H reconsulted due to SOB, rash and finger pain. Hallucinations, psychosis -Managed by psychiatry team Atrial fibrillation, chronic HTN HLD -Continue aspirin, Cardizem 60 mg 3 times daily, Eliquis 5 mg twice daily, metoprolol 100 mg twice daily, Lasix 40 mg daily -Continue pravastatin -Heart rate and BP stable DM 2, uncontrolled -Diabetic diet -Hemoglobin A1c 7.9 -Patient can continue Toujeo 60 units QHS when discharged home. - BS stable Cough Hx emphysema ? COPD - + productive cough, continue Mucinex, ipratropium - Continue NC to keep sats >90%, encourage OOB and IS - CBC with no leukocytosis - Chest x-ray with sable enlargement of cardiomediastinal silhouette, new opacifications on left lung base possibly representing combination of airspace disease and pleural fluid. New mild blunting of right lateral costophrenic angles suggesting trace pleural effusion. -Pro calcitonin within normal limits, afebrile, improvement in respiratory status with additional dose of Lasix. CHF, mild exacerbation - BNP 844, s/p short course of additional Lasix. - SOB has improved, continue to monitor -Patient to continue her normal dose of Lasix once discharged. Skin cherelle -Continue nystatin powder, keep area clean and dry. Right hand trigger finger - Chronic and ongoing per patient, conservative treatment - PRN Tylenol, splinting if needed, will need to follow up as out patient for possible steroid injections. JUSTO with possible CKD -Patient reports she frequently has laboratory monitoring of her kidneys, does not see a diabetes territory manager. -Creatinine 1.4---> 1.24-->1.18, ongoing monitoring as outpatient. -Avoid nephrotoxins DVT prop eliquis Patient medically clear for discharge. Discussed Condition With: Patient, RN, Dr. Almendarez.
--- NOTE | 2018-04-26 09:00 | P.DCO ---
- Physical Therapy Order: Evaluate and treat - Occupational Therapy Order: Evaluate and treat - Home Health Nursing Order: Medical education, Signs/symptoms of disease process, Medication education-adverse effect, Nursing assessment with vital signs - Field Administrator Order: To evaluate: Support services - Case Management Consult Case Management Consult-Home Health: Yes - Certification I have seen patient Radha Benson on 04/26/18. My clinical findings support the need for the requested home health care services because: Limited mobility due to disease progression, Deconditioned with increased weakness, Medication compliance is questionable, Limited ability to care for self, Need for psychosocial assistance I certify that my clinical findings support that this patient is homebound because: Unsteady gait/balance, Need for psychosocial assistance
[2018-04-26] MEDS: Furosemide 40 MG Tablet PO SCH (09:36)
[2018-04-26] MEDS: guaiFENesin 600 MG ER Tablet PO SCH (09:37)
[2018-04-26] MEDS: Metoprolol Tartrate 100 MG Tablet PO SCH (09:38)
[2018-04-26] MEDS: Magnesium Oxide 400 MG Tablet PO SCH (09:38)
[2018-04-26] MEDS: Allopurinol 300 MG Tablet PO SCH (09:40)
[2018-04-26] MEDS: dilTIAZem 60 MG Tablet PO SCH ×3 (09:40→17:50)
[2018-04-26] MEDS: QUEtiapine 25 MG Tablet PO SCH (09:40)
[2018-04-26] MEDS: Insulin Detemir Inj 1,000 UNIT/10 ML Vial SQ SCH (09:41)
[2018-04-26] MEDS: Senna/Docusate Sodium 8.6/50 MG Tablet PO SCH (09:41)
[2018-04-26] MEDS: Pantoprazole Sodium 20 MG DR Tablet PO SCH (09:41)
[2018-04-26] MEDS: Insulin NovoLOG Aspart Correctional Sugar Inj SQ SCH ×3 (09:43→17:51)
[2018-04-26] MEDS: Nystatin 100,000 UNITS/GM Powder 15 GM Bottle TOPICAL SCH (09:43)
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
[2018-04-26] MEDS: Montelukast 10 MG Tablet PO SCH (17:49)
== END 2018-04-26 18:30 ==
LOC: NEPD 14:29 → NEDA 04-14 14:48 → H4EA 04-14 15:58
PROVIDERS: ADMIT Student in an Organized Health Care Education/Training Program; ATTEND Student in an Organized Health Care Education/Training Program